=== PATIENT | female | born 1970 | race Caucasian/White ===

== ENCOUNTER 2023-03-03 09:34 | Outpatient (OUT) | payer BC, SELFPAY ==
[2023-03-03 09:58] LABS: Basophils Percent Auto 0.3 % (0.2-2.0); Eosinophils Absolute Auto 0.1 10^3/uL (0.0-0.7); Eosinophils Percent Auto 1.8 % (0.9-7.0); Hematocrit 42.1 % (36.0-48.0); Immature Granulocytes Abs Auto 0.02 10^3/uL (0.00-0.03); Immature Granulocytes Pct Auto 0.3 % (0.0-0.5); Lymphocytes Absolute Auto 1.3 10^3/uL (1.2-3.8); Lymphocytes Percent Auto 20.6 % (20.5-60.0); Mean Corpuscular HGB Conc 33.3 g/dL (29.9-35.2); Mean Corpuscular Hemoglobin 31.3 pg (26.7-34.0); Mean Platelet Volume 10.2 fL (9.5-13.5); Monocytes Absolute Auto 0.4 10^3/uL (0.3-0.8); Monocytes Percent Auto 5.8 % (1.7-12.0); Neutrophils Absolute Auto 4.5 10^3/uL (1.4-6.5); Neutrophils Percent Auto 71.2 % (43.0-75.0); Platelet Count 221 10^3/uL (150-450); Red Blood Count 4.48 10^6/uL (4.20-5.40); Red Cell Distribution Width 12.2 % (11.0-15.0); White Blood Count 6.3 10^3/uL (4.0-11.0)
[2023-03-03 10:23] LABS: Estimated Average Glucose 103 mg/dL; Glycohemoglobin A1C 5.2 % (4.5-6.2)
[2023-03-03 11:36] LABS: Alanine Aminotransferase 25 U/L (14-59); Albumin Globulin Ratio 0.8; Albumin Level 3.5 g/dL (3.4-5.0); Alkaline Phosphatase 73 U/L (46-116); Anion Gap 15.5; Aspartate Amino Transferase 12 U/L (15-37); Bilirubin Total 0.3 mg/dL (0.2-1.0); Carbon Dioxide 24.7 mmol/L (21.0-32.0); Chloride 104 mmol/L (98-107); Chol HDL Ratio 4.6; Cholesterol 175 mg/dL (<=200); Estimated GFR (African America >60 (>=60); Estimated GFR (Non-African Ame >60 (>=60); Free T3 2.63 pg/mL (2.18-3.98); Globulin 4.2 g/dL; Glucose 102 mg/dL (74-106); HDL Cholesterol 38 mg/dL (40-60); Potassium 4.2 mmol/L (3.5-5.1); Sodium 140 mmol/L (136-145); Thyroid Stimulating Hormone 1.482 uIU/mL (0.358-3.740); Total Protein 7.7 g/dL (6.4-8.2); Triglycerides 136 mg/dL (<=150); VLDL CHOLESTEROL 27.2 mg/dL
[2023-03-04 11:20] LABS: Insulin 37.2 uIU/mL (2.6-24.9)
== END 2023-03-03 09:35 | disposition home or self-care (01) ==
PROVIDERS: PCP Family Medicine; Visit Provider Family Medicine
DX: Z00.00 Encounter for general adult medical examination without abnormal findings (principal)
CPT/HCPCS: 36415; 80053; 80061; 83036; 83525; 83540; 84436; 84443; 84481; 85025

== ENCOUNTER 2023-03-17 08:23 | Outpatient (OUT) | payer BC, SELFPAY ==
--- NOTE | 2023-03-17 08:26 | MM_ITS ---
Patient: DINORAH VERNON Exam Date: 03/17/2023 : 1970 Gender:F Ordering : DR PHILIPPE AMOS . Admission #: [id number] Family : Order #: [id number] CLICK HERE TO VIEW EXAM RADIOLOGY REPORT PROCEDURE: MM TOMOSYNTHESIS SCREENING BI COMPARISON: [facility] MAMM SCREEN 3D VALENTE CAD, 03/04/2022. MG MAMM VALENTE SCRN W CAD DIG, 07/13/2015. INDICATIONS: Screening Calculator Name NCI Breast Cancer Risk Assessment Tool 5 Year Breast Cancer Risk 0.90% Lifetime Breast Cancer Risk 7.80% Personal Breast Cancer No Personal Ovarian Cancer No Treatments None Family Cancers Aunt-maternal with uterus cancer at age ~55. LOCATION: [facility] BREAST COMPOSITION: Scattered areas fibroglandular density. FINDINGS: DIAGNOSTIC CATEGORY 2--BENIGN FINDING: RIGHT BREAST: No significant suspicious finding. Scattered benign-appearing lymph nodes are present. No significant change has occurred. LEFT BREAST: No significant suspicious finding. No significant change has occurred. RECOMMENDATIONS: ROUTINE MAMMOGRAM AND CLINICAL EVALUATION IN 12 MONTHS. PLEASE NOTE: A NORMAL MAMMOGRAM DOES NOT EXCLUDE THE POSSIBILITY OF BREAST CANCER. A CLINICALLY SUSPICIOUS PALPABLE LUMP SHOULD BE BIOPSIED. Dictated by: Luiz Wu M.D. on 03/19/2023 at 08:41 Approved by: Luiz Wu M.D. on 03/19/2023 at 08:44
== END 2023-03-17 08:24 | disposition home or self-care (01) ==
LOC: MAMMO 08:23
PROVIDERS: PCP Family Medicine; Visit Provider Family Medicine
DX: Z12.31 Encounter for screening mammogram for malignant neoplasm of breast (principal); Z80.49 Family history of malignant neoplasm of other genital organs
CPT/HCPCS: 77063; 77067

== ENCOUNTER 2023-04-15 14:30 | Outpatient (OUT) | payer BC, SELFPAY | END 2023-04-15 14:31 | disposition home or self-care (01) | LOC: PST 04-16 09:16 | PROVIDERS: PCP Family Medicine; Visit Provider Surgery | DX: Z01.818 Encounter for other preprocedural examination (principal); Z12.11 Encounter for screening for malignant neoplasm of colon ==

== ENCOUNTER 2023-04-23 09:54 | Day surgery (SDC) | payer BC, SELFPAY ==
--- NOTE | 2023-04-23 | OP_ITS ---
OPERATION DATE: ??04/23/2023 PREOPERATIVE DIAGNOSIS:? Colorectal screening. POSTOPERATIVE DIAGNOSIS:? 7 mm sigmoid polyp, multiple small rectal polyps. PROCEDURE:? Colonoscopy to cecum with hot snare polypectomy x1 for sigmoid polyp and cold biopsy forceps polypectomy x3 for 3 mm rectal polyps. SURGEON:? Jayden Alexander M.D. ANESTHESIA:? Monitored anesthesia care. ESTIMATED BLOOD LOSS:? Less than 1 mL. INDICATIONS AND CONSENT:? Patient is a 52-year-old female presents for colorectal screening.? Indications, risks, benefits, alternatives of proceeding with colonoscopy were explained extensively to the patient, including the risks of bleeding, colon perforation or anesthetic complications.? All of her questions were answered.? Informed consent was obtained. PROCEDURE:? Patient brought to the operating room, placed in the left lateral decubitus position.? Monitored anesthesia care was provided.? Rectal exam was performed which showed no masses or blood.? The scope was inserted into the anal canal.? Under direct visualization was advanced.? With the aid of abdominal compression, it was advanced to the cecum where cecal markings were clearly identified.? There was noted to be a good prep.? Upon withdrawal of the scope, mucosal surfaces were carefully examined.? There were no mass lesions or inflammatory changes.? There were rare sigmoid diverticula.? Within the distal sigmoid colon, there was noted to be a 7 mm pedunculated polyp that was removed with hot snare with good hemostasis.? Within the rectum, there were multiple 3 mm rectal polyps, appeared to be hyperplastic.? Three were removed with cold biopsy forceps with good hemostasis.? The scope was retroflexed in the anal canal.? There was no significant hemorrhoidal disease.? There was a small hypertrophic anal papilla.? Scope was then withdrawn.? Patient tolerated procedure well, was sent to recovery room in good condition. surveillance colonoscopy likely in 3 years, but may change based on pathology. CC:? Johan Pro
[2023-04-23 10:00] VITALS: BP 146/83; PULSE 91; RESP 18; TEMP 36.2; O2SAT 97; BMI 44.4
[2023-04-23] MEDS: LACTATED RINGER'S SOLUTION 1,000 ML 50 ML IV (10:20)
[2023-04-23 11:27] VITALS: BP 116/73; PULSE 74; RESP 18; TEMP 36.7; O2SAT 97
[2023-04-23 11:42] VITALS: BP 153/88; PULSE 73; RESP 16; O2SAT 98
[2023-04-23 11:57] VITALS: BP 163/94; PULSE 72; RESP 16; O2SAT 98
== END 2023-04-23 12:07 | disposition home or self-care (01) ==
PROVIDERS: PCP Family Medicine; Visit Provider Surgery
PROC: (CPT 45380; principal; 2023-04-23 11:10)
DX: Z12.11 Encounter for screening for malignant neoplasm of colon (principal); D12.5 Benign neoplasm of sigmoid colon; K62.1 Rectal polyp; I10 Essential (primary) hypertension; E66.01 Morbid (severe) obesity due to excess calories; Z68.41 Body mass index [BMI] 40.0-44.9, adult; F17.210 Nicotine dependence, cigarettes, uncomplicated
CPT/HCPCS: 45380; 45385; 88305; J2704

== ENCOUNTER 2024-04-09 08:41 | Outpatient (OUT) | payer BC, SELFPAY ==
[2024-04-09 09:04] LABS: Basophils Percent Auto 0.4 % (0.2-2.0); Eosinophils Absolute Auto 0.1 10^3/uL (0.0-0.7); Eosinophils Percent Auto 2.3 % (0.9-7.0); Hematocrit 41.8 % (36.0-48.0); Hemoglobin 14.1 g/dL (12.0-16.0); Lymphocytes Absolute Auto 2.2 10^3/uL (1.2-3.8); Lymphocytes Percent Auto 42.3 % (20.5-60.0); Mean Corpuscular HGB Conc 33.7 g/dL (29.9-35.2); Mean Corpuscular Hemoglobin 32.3 pg (26.7-34.0); Mean Corpuscular Volume 95.7 fL (81.0-99.0); Mean Platelet Volume 10.6 fL (9.5-13.5); Monocytes Absolute Auto 0.5 10^3/uL (0.3-0.8); Monocytes Percent Auto 8.7 % (1.7-12.0); Neutrophils Absolute Auto 2.4 10^3/uL (1.4-6.5); Neutrophils Percent Auto 46.3 % (43.0-75.0); Platelet Count 220 10^3/uL (150-450); Red Blood Count 4.37 10^6/uL (4.20-5.40); Red Cell Distribution Width 12.1 % (11.0-15.0); White Blood Count 5.2 10^3/uL (4.0-11.0)
[2024-04-09 10:55] LABS: Alanine Aminotransferase 23 U/L (14-59); Albumin Globulin Ratio 0.9; Albumin Level 3.6 g/dL (3.4-5.0); Alkaline Phosphatase 86 U/L (46-116); Anion Gap 13.8; Aspartate Amino Transferase 15 U/L (15-37); BUN Creatinine Ratio 18.8; Bilirubin Total 0.4 mg/dL (0.2-1.0); Calcium 9.6 mg/dL (8.5-10.1); Carbon Dioxide 26.3 mmol/L (21.0-32.0); Chloride 103 mmol/L (98-107); Chol HDL Ratio 4.3; Cholesterol 176 mg/dL (<=200); Estimated GFR (African America >60 (>=60); Estimated GFR (Non-African Ame 57 (>=60); Free T3 2.47 pg/mL (2.18-3.98); Glucose 101 mg/dL (74-106); HDL Cholesterol 41 mg/dL (40-60); LDL Cholesterol Calculated 107.8 mg/dL; Potassium 4.1 mmol/L (3.5-5.1); Sodium 139 mmol/L (136-145); Thyroid Stimulating Hormone 2.257 uIU/mL (0.358-3.740); Total Protein 7.6 g/dL (6.4-8.2); Triglycerides 136 mg/dL (<=150); VLDL CHOLESTEROL 27.2 mg/dL
[2024-04-09 11:01] LABS: Estimated Average Glucose 100 mg/dL; Glycohemoglobin A1C 5.1 % (4.5-6.2)
[2024-04-10 10:09] LABS: Insulin 17.8 uIU/mL (2.6-24.9)
== END 2024-04-09 08:42 | disposition home or self-care (01) ==
LOC: LAB 08:42
PROVIDERS: PCP Family Medicine; Visit Provider Family Medicine
DX: Z00.00 Encounter for general adult medical examination without abnormal findings (principal)
CPT/HCPCS: 36415; 80053; 80061; 83036; 83525; 84436; 84443; 84481; 85025

== ENCOUNTER 2024-07-29 10:23 | Outpatient (OUT) | payer BC, SELFPAY ==
--- OUTSIDE RECORDS SUMMARY | 2024-07-29 10:32 | XMS_ITS | CCD ---
Author Organization [facility] Care Team Providers Care Workers Compensation Administrator Name Role Phone DR PHILIPPE PARDO Primary Care Unavailable EDVIN, DR PAEZ Consulting Unavailable DR PHILIPPE PARDO Attending Unavailable DR PHILIPPE PARDO Admitting Unavailable DR Luiz Wu Consulting Unavailable Philippe Pardo Primary Care Physician Jayden ALEXANDER Attending Unavailable Philippe Pardo Referring Unavailable NILL, Jayden Valle Attending Unavailable Philippe Pardo Referring Unavailable NILL, Jayden Valle Attending Unavailable NILL, Jayden Valle Attending Unavailable Allergies Allergy Classification Reported Allergen(s) Allergy Type Date of Onset Reaction(s) Facility (1 source) No Known Medication Allergies; Translations: [No Known Medication Allergies] Propensity to adverse reactions (disorder) [facility] Repository Medications Current Medications Medication Drug Class(es) Dates Sig (Normalized) Sig (Original) 0.75 ML semaglutide 3.2 MG/ML Auto-Injector [Wegovy] (2 sources) Start: 04-04-2023 inject 2.4 mg by subcutaneous injection every week Wegovy (2.4 mg dose) subcutaneous solution 2.4 mg, SubCutaneous, qWeek, Refills(s) 0 Start Date: 04/04/23 Status: Ordered carvedilol 12.5 mg oral tablet (2 sources) alpha-Adrenergic Nimco, beta-Adrenergic Nimco Start: 04-04-2023 take 1 tablet by mouth twice daily carvedilol 12.5 mg Tab 12.5 mg = 1 tab(s), Oral, BID, Refills(s) 0 Start Date: 04/04/23 Status: Ordered 24 hr desvenlafaxine succinate 50 mg extended release oral tablet (2 sources) Serotonin and Norepinephrine Reuptake Inhibitor Start: 04-04-2023 take 1 tablet by mouth once daily desvenlafaxine 50 mg Tab- 50 mg = 1 tab(s), Oral, Daily, Refills(s) 0 Start Date: 04/04/23 Status: Ordered Start: 04-04-2023 take 1 tablet by mitchell th once daily desvenlafaxine 50 mg Tab- 50 mg = 1 tab(s), Oral, Daily, Refills(s) 0 Start Date: 04/04/23 Status: Ordered irbesartan 150 mg oral tablet (2 sources) Angiotensin 2 Receptor Nimco Start: 04-04-2023 take 1 tablet by mouth once daily irbesartan 150 mg Tab 150 mg = 1 tab(s), Oral, Daily, Refills(s) 0 Start Date: 04/04/23 Status: Ordered Problems Problem Classification Problem Date Documented Da te Episodic/Chronic Anal and rectal conditions (1 source) Rectal polyp; Translations: [Rectal polyp] Onset: 05-02-2023 Episodic Essential hypertension (2 sources) Hypertensive disorder 04-04-2023 Chronic Mood disorders (2 sources) Depressive disorder 04-04-2023 Chronic Nutritional deficiencies (2 sources) Vitamin D deficiency 04-04-2023 Chronic Other and unspecified benign neoplasm (2 sources) Benign neoplasm of sigmoid colon; Translations: [Benign neoplasm of sigmoid colon] Onset: 05-02-2023 Episodic Other and unspecified benign neoplasm (1 source) Hyperplastic polyp of large intestine 05-02-2023 Episodic Other nutritional; endocrine; and metabolic disorders (3 sources) Body mass index 40+ - severely obese; Translations: [Body mass index (BMI) 40.0-44.9, adult] Onset: 04-09-2023 Chronic Other nutritional; endocrine; and metabolic disorders (2 sources) Morbid obesity 04-04-2023 Chronic Other screening for suspected conditions (not mental disorders or infectious disease) (2 sources) Encounter for screening mammogram for malignant neoplasm of breast; Translations: [Screening for malignant neoplasm of colon done] Onset: 03-05-2022 Episodic Residual codes; unclassified (1 source) Family history of malignant neoplasm of other organs or systems; Translations: [FAM HX MALIG NEOPLASM OTH ORGN/SYS] Onset: 03-05-2022 Episodic Unclassified (2 sources) Patient encounter status 04-09-2023 Results Test Name Value Interpretation Reference Range [facility] General Surgery Office/Clini c Noteon 05-02-2023 General Surgery Office/Clinic Note Chief Complaint post operative follow up HPI Staff 9 day post operative follow up post colonoscopy with sigmoid and rectal polypectomies. History of Present Illness s/p colonoscopy for colorectal screening; 7 mm tubular adenoma removed from sigmoid colon; multiple small hyperplastic rectal polyps; doing well, no abd pain or blood in stools. Review of Systems ROS - Provider Constitutional: no fever, no sweats, no weight loss. Eyes: no glasses, no blurred vision, no visual loss. ENMT: no dentures, no hoarseness, no swallowing difficulties, no hearing loss, no ear infection(s), no nose bleeds. Cardiovascular: normal blood pressure, no chest pain, regular heartbeat, no heart murmur. Respiratory: no shortness of breath, no cough, no asthma, no wheezing. Gastrointestinal: no nausea, no vomiting, no diarrhea, no constipation, no blood in stool, no change in bowel habits, no abdominal pain, no hepatitis. Genitourinary: no kidney stones, no urine infection, no dysuria. Musculoskeletal: no pain, no weakness. Skin: no changing moles, no rash, no skin lumps. Neurologic: no seizures, no epilepsy, no headache. Psychiatric: no emotional or psychiatric problem. Heme/Lymph: no bleeding problems, no anemia, no blood clots, no transfusions. Allergy/Immunologic: no swollen lymph nodes/glands, no IV drug abuse. Other: Additional ROS info: Except as noted in the above Review of Systems and in the History of Present Illness, all other systems have been reviewed and are negative or noncontributory. Assessment/Plan 1. Benign neoplasm of sigmoid colon (D12.5: Benign neoplasm of sigmoid colon) plan surveillance colonoscopy in 5 years, call sooner if problems/questions. 2. Hyperplastic rectal polyp (K62.1: Rectal polyp) see # 1 Follow-up No qualifying data available Problem List/Past Medical History Ongoing Benign neoplasm of sigmoid colon BMI 40.0-44.9, adult Depression HTN (hypertension) Hyperplastic rectal polyp Morbid obesity Screening for malignant neoplasm of colon Vitamin D deficiency Historical No qualifying data Procedure/Surgical History Colonoscopy (04/23/2023), Excision of hemangioma. Medications carvedilol 12.5 mg Tab, 12.5 mg= 1 tab(s), Oral, BID desvenlafaxine 50 mg Tab-, 50 mg= 1 tab(s), Oral, Daily irbesartan 150 mg Tab, 150 mg= 1 tab(s), Oral, Daily Wegovy (2.4 mg dose) subcutaneous solution, 2.4 mg, SubCutaneous, qWeek Allergies No Known Allergies No Known Medication Allergies Social History Alcohol - Denies Alcohol Use, 04/09/2023 Substance Abuse - Denies Substance Abuse, 04/09/2023 Tobacco 10 or more cigarettes (1/2 pack or more)/day in last 30 days Tobacco Use:. Never Smokeless Tobacco Use:. Cigarettes, 1 per day. Started age 15.0 Years. Yes, 04/09/2023 Family History Cardiac arrhythmia: Father and Brother. Hemochromatosis: Father. Hypertension: Mother. Immunizations Vaccine Date Status SARS-CoV-2 (COVID-19) [id number] 05/17/2022 Recorded SARS-CoV-2 (COVID-19) mRNA BNT-162b2 vax 07/06/2021 Recorded SARS-CoV-2 (COVID-19) mRNA BNT-162b2 vax 11/10/2020 Recorded SARS-CoV-2 (COVID-19) mRNA BNT-162b2 vax 10/20/2020 Recorded Normal [facility] Comment on above: Result Comment: Elec tronically Signed By: YENNI SALINAS, Jayden Luevano.emi\Date and Time Signed: 05/02/23 15:54 EDT Reminderson 05-02-2023 Reminders - From: Eun Rivera LPN To: N - Clinical; Sent: 05/02/2023 15:38:48 EDT Show up: 03/23/2028 07:00:00 EDT Subject: colonoscopy recall Due Date/Time: 04/23/2028 07:00:00 EDT Reminder/Recall Patient due for surveillance colonoscopy 04/23/2028 due to history of tubular adenoma. Normal [facility] Pathology Noteon 04-28-2023 Pathology Note [id number]# 1.00CD:127 Normal [facility] Outside Colonoscopyon 2022 Outside Colonoscopy [id number] #1.00CD:127 Normal [facility] Consent for Procedure/Surger yon 04-10-2023 Consent for Procedure/Surgery [id number] #1.00CD:127 Normal [facility] Formson 04-10-2023 Forms [id number] #1.00CD:127 Normal [facility] Ambulatory Visit Summaryon 0 04-09-2023 Ambulatory Visit Summary LEIGHA VERNON :1970 Visit Date:04/09/2023 Ambulatory Visit Instructions Your Diagnosis Screening for malignant neoplasm of colon BMI 40.0-44.9, adult Your Care Team Attending Physician - YENNI SALINAS, Jayden Valle Primary Care Physician - Edvin SALINAS, Philippe Referring Physician - Philippe Pardo MD This Is Your Medications List Contact prescribing physician if questions or concerns carvedilol (carvedilol 12.5 mg Tab) desvenlafaxine (desvenlafaxine 50 mg Tab-) irbesartan (irbesartan 150 mg Tab) semaglutide (Wegovy (2.4 mg dose) subcutaneous solution) Procedures Performed Excision of hemangioma. Discharge Vitals Heart Rate (Peripheral) 80 Respiratory Rate 16 Blood Pressure 138/90 Height 170 cm Height 67 in Weight 127.7 kg Weight 280.94 lb BMI 44.19 Medications What How Much When Instructions Unchanged carvedilol (carvedilol 12.5 mg Tab) 1 Tablets By Mouth 2 times a day Contact prescribing physician if questions or concerns Unchanged desvenlafaxine (desvenlafaxine 50 mg Tab-) 1 Tablets By Mouth Every day Contact prescribing physician if questions or concerns Unchanged irbesartan (irbesartan 150 mg Tab) 1 Tablets By Mouth Every day Contact prescribing physician if questions or concerns Unchanged semaglutide (Wegovy (2.4 mg dose) subcutaneous solution) 2.4 Milligram Subcutaneous Every week Contact prescribing physician if questions or concerns Allergies No Known Allergies No Known Medication Allergies Problems Ongoing - Any problem that you are currently receiving treatment for. BMI 40.0-44.9, adult Depression HTN (hypertension) Morbid obesity Screening for malignant neoplasm of colon Vitamin D deficiency Normal [facility] Provider Letteron 03-18-2023 Provider Letter March 18, 2023 LEIGHA VERNON [address] [place] [address] : 1970 Dear Leigha , We have been trying to reach you with no success. It is important that you return our call regarding your referral from Dr. Pardo_ upon receiving this letter. Also, at the time of your call, please provide us with your current information. Thank you for your prompt attention to this matter. Sincerely, Dr. Jayden Alexander General Surgery Normal [facility] Physician Referralon 023 Physician Referral [id number] #1.00CD:127 Normal [facility] Physician Referralon 023 Physician Referral [id number] #1.00CD:127 Normal [facility] INSULINon 03-05-2022 Insulin 30.6 uIU/mL Critically high 2.6-24.9 [facility] Comment on above: Performed By: #### I NSULIN #### [facility] [address] [place] [address] Dr. Alvino Oliva BNPon 03-04-2022 Natriuretic peptide B (Bld) [Mass/Vol] 25.0 pg/mL Normal <=900.0 [facility] Comment on above: Performed By: #### B SUSTAINABLE DESIGN COORDINATOR, TSH, CMP, LIPID, T7 #### [facility] [address] [place] [address] Dr. Alvino Oliva CBC AUTO DIFFon 03-04-2022 BASO # 0.0 103/ul Normal 0.0-0.1 [facility] Comment on above: Performed By: #### C BC #### [facility] [address] [place] [address] Dr. Alvino Oliva Basophils/100 WBC (Bld) 0.3 % Normal 0.2-2.0 [facility] Comment on above: Performed By: #### C BC #### [facility] [address] [place] [address] Dr. Alvino Oliva EO # 0.1 103/ul Normal 0.0-0.7 [facility] Comment on above: Performed By: #### C BC #### [facility] [address] [place] [address] Dr. Alvino Oliva Eosinophils/100 WBC (Bld) 1.9 % Normal 0.9-7.0 [facility] Comment on above: Performed By: #### C BC #### [facility] [address] [place] [address] Dr. Alvino Oliva Erythrocyte distribution width (RBC) [Ratio] 12.4 % Normal 11.0-15.0 [facility] Comment on above: Performed By: #### C BC #### [facility] [address] [place] [address] Dr. Alvino Oliva Hematocrit (Bld) [Volume fraction] 42.1 % Normal 36.0-48.0 [facility] Comment on above: Performed By: #### C BC #### [facility] [address] [place] [address] Dr. Alvino Oliva Hemoglobin (Bld) [Mass/Vol] 14.5 g/dL Normal 12.0-16.0 [facility] Comment on above: Performed By: #### C BC #### [facility] [address] [place] [address] Dr. Alvino Oliva IG # 0.02 10e3/ul Normal 0.00-0.03 [facility] Comment on above: Performed By: #### C BC #### [facility] [address] [place] [address] Dr. Alvino Oliva IG % 0.3 % Normal 0.0-0.5 [facility] Comment on above: Performed By: #### C BC #### [facility] [address] [place] [address] Dr. Alvino Oliva LYMPH # 1.9 103/ul Normal 1.2-3.8 [facility] Comment on above: Performed By: #### C BC #### [facility] [address] [place] [address] Dr. Alvino Oliva Lymphocytes/100 WBC (Bld) 31.7 % Normal 20.5-60.0 [facility] Comment on above: Performed By: #### C BC #### [facility] [address] [place] [address] Dr. Alvino Oliva MANUAL DIFF REQ NO Normal [facility] Comment on above: Performed By: #### C BC #### [facility] [address] [place] [address] Dr. Alvino Oliva MCH (RBC) [Entitic mass] 31.7 pg Normal 26.7-34.0 [facility] Comment on above: Performed By: #### C BC #### [facility] [address] [place] [address] Dr. Alvino Oliva MCHC (RBC) [Mass/Vol] 34.4 g/dL Normal 29.9-35.2 [facility] Comment on above: Performed By: #### C BC #### [facility] [address] [place] [address] Dr. Alvino Oliva MCV (RBC) [Entitic vol] 92.1 fL Normal 81.0-99.0 [facility] Comment on above: Performed By: #### C BC #### [facility] [address] [place] [address] Dr. Alvino Oliva MONO # 0.4 103/ul Normal 0.3-0.8 [facility] Comment on above: Performed By: #### C BC #### [facility] [address] [place] [address] Dr. Alvino Oliva Monocytes/100 WBC (Bld) 6.0 % Normal 1.7-12.0 [facility] Comment on above: Performed By: #### C BC #### [facility] [address] [place] [address] Dr. Alvino Oliva NEUT # 3.5 103/ul Normal 1.4-6.5 [facility] Comment on above: Performed By: #### C BC #### [facility] [address] [place] [address] Dr. Alvino Oliva Neutrophils/100 WBC (Bld) 59.8 % Normal 43.0-75.0 [facility] Comment on above: Performed By: #### C BC #### [facility] [address] [place] [address] Dr. Alvino Oliva Platelet mean volume (Bld) [Entitic vol] 10.2 fL Normal 9.5-13.5 [facility] Comment on above: Performed By: #### C BC #### [facility] [address] [place] [address] Dr. Alvino Oliva PLT 246 103/ul Normal 150-450 [facility] Comment on above: Performed By: #### C BC #### [facility] [address] [place] [address] Dr. Alvino Oliva RBC 4.57 106/ul Normal 4.20-5.40 [facility] Comment on above: Performed By: #### C BC #### [facility] [address] [place] [address] Dr. Alvino Oliva WBC 5.8 103/ul Normal 4.0-11.0 [facility] Comment on above: Performed By: #### C BC #### [facility] [address] [place] [address] Dr. Alvino Oliva FREE THYROXINE INDEX T7on FTI 2.44 Normal 1.30-4.50 [facility] Comment on above: Performed By: #### B SUSTAINABLE DESIGN COORDINATOR, TSH, CMP, LIPID, T7 #### [facility] [address] [place] [address] Dr. Alvino Oliva T3U 33.0 % Normal 30.0-39.0 [facility] Comment on above: Performed By: #### B SUSTAINABLE DESIGN COORDINATOR, TSH, CMP, LIPID, T7 #### [facility] [address] [place] [address] Dr. Alvino Oliva T4 [Mass/Vol] 7.40 ug/dL Normal 4.80-13.90 [facility] Comment on above: Performed By: #### B SUSTAINABLE DESIGN COORDINATOR, TSH, CMP, LIPID, T7 #### [facility] [address] [place] [address] Dr. Alvino Oliva GLYCOHEMOGLOBIN A1Con 2021 ADA RECOMMENDATION SEE BELOW Normal [facility] Comment on above: Result Comment: ADA RECOMMENDED LIMIT 4.0 - 6.0 ADA THERAPEUTIC TARGET < 7.0 ACTION SUGGESTED > 7.0 Performed By: #### A 1C #### [facility] [address] [place] [address] Dr. Alvino Oliva Glucose [Mass/Vol] 114 mg/dL Normal [facility] Comment on above: Performed By: #### A 1C #### [facility] [address] [place] [address] Dr. Alvino Oliva HbA1c (Bld) [Mass fraction] 5.6 % Normal 4.5-6.2 [facility] Comment on above: Performed By: #### A 1C #### [facility] [address] [place] [address] Dr. Alvino Oliva IRONon 03-04-2022 Iron [Mass/Vol] 117.0 ug/dL Normal 50.0-170.0 [facility] Comment on above: Performed By: #### I LANDON #### [facility] [address] [place] [address] Dr. Alvino Oliva LIPID PROFILEon 03-04-2022 CHOL-HDL RATIO NORM SEE BELOW Normal [facility] Comment on above: Result Comment: 3.3 - 4.4 LOW RISK 4.4 - 7.1 AVERAGE RISK 7.1 - 11.0 MODERATE RISK >11.0 HIGH RISK Performed By: #### B SUSTAINABLE DESIGN COORDINATOR, TSH, CMP, LIPID, T7 #### [facility] [address] [place] [address] Dr. Alvino Oliva Cholesterol [Mass/Vol] 187 mg/dL Normal <=200 [facility] Comment on above: Performed By: #### B SUSTAINABLE DESIGN COORDINATOR, TSH, CMP, LIPID, T7 #### [facility] [address] [place] [address] Dr. Alvino Oliva Cholesterol in HDL [Mass/Vol] 34 mg/dL Critically low 40-60 [facility] Comment on above: Performed By: #### B SUSTAINABLE DESIGN COORDINATOR, TSH, CMP, LIPID, T7 #### [facility] [address] [address] [address] Alvino Oliva Cholesterol in LDL [Mass/Vol] 122.6 mg/dL Normal [facility] Comment on above: Performed By: #### B SUSTAINABLE DESIGN COORDINATOR, TSH, CMP, LIPID, T7 #### [facility] [address] [address] [address] Alvino Oliva Cholesterol.total/Cho lesterol in HDL [Mass ratio] 5.5 {ratio} Normal [facility] Comment on above: Performed By: #### B SUSTAINABLE DESIGN COORDINATOR, TSH, CMP, LIPID, T7 #### [facility] [address] [address] [address] Alvino Oliva HDL NORMAL > or = 60 mg/dl - LOW CARDIOVASCULAR RISK <40 mg/dl - HIGH CARDIOVASCULAR RISK Normal [facility] Comment on above: Performed By: #### B SUSTAINABLE DESIGN COORDINATOR, TSH, CMP, LIPID, T7 #### [facility] [address] [address] [address] Alvino Oliva LDL CALC NORMAL SEE BELOW Normal [facility] Comment on above: Result Comment: <100 mg/dl OPTIMAL 100 - 129 mg/dl NEAR OR ABOVE OPTIMAL 130 - 159 mg/dl BORDERLINE HIGH 160 - 189 mg/dl HIGH >190 mg/dl VERY HIGH Performed By: #### B SUSTAINABLE DESIGN COORDINATOR, TSH, CMP, LIPID, T7 #### [facility] [address] [address] [address] Alvino Oliva Triglyceride [Mass/Vol] 152 mg/dL Critically high <=150 [facility] Comment on above: Performed By: #### B SUSTAINABLE DESIGN COORDINATOR, TSH, CMP, LIPID, T7 #### [facility] [address] [address] [address] Alvino Oliva VLDL CALC 30.4 mg/dL Normal [facility] Comment on above: Performed By: #### B SUSTAINABLE DESIGN COORDINATOR, TSH, CMP, LIPID, T7 #### [facility] [address] [address] [address] Alvino Oliva MG MAMM SCREEN 3D VALENTE CADon 03-04-2022 MG MAMM SCREEN 3D VALENTE CAD Patient: LEIGHA VERNONFlavio Exam Date: 03/04/2022 : 1970 Gender:F Ordering : DR PHILIPPE PARDO . Admission #: [id number] Family : Order #: [id number] CLICK HERE TO VIEW EXAM RADIOLOGY REPORT PROCEDURE: MAMMOGRAM SCREENING 3D BILATERAL CAD COMPARISON: MG MAMM VALENTE SCRN W CAD DIG, 07/13/2015. INDICATIONS: Screening mammography Calculator Name NCI Breast Cancer Risk Assessment Tool 5 Year Breast Cancer Risk 0.90% Lifetime Breast Cancer Risk 7.90% Personal Breast Cancer No Personal Ovarian Cancer No Treatments None Family Cancers Aunt-maternal with uterus cancer at age 55. LOCATION: [facility] BREAST COMPOSITION: Scattered areas fibroglandular density. FINDINGS: DIAGNOSTIC CATEGORY 2--BENIGN FINDING: RIGHT BREAST: No significant suspicious finding. Scattered benign-appearing nodule(s) are present. No significant change has occurred. LEFT BREAST: No significant suspicious finding. No significant change has occurred. RECOMMENDATIONS: ROUTINE MAMMOGRAM AND CLINICAL EVALUATION IN 12 MONTHS. PLEASE NOTE: A NORMAL MAMMOGRAM DOES NOT EXCLUDE THE POSSIBILITY OF BREAST CANCER. A CLINICALLY SUSPICIOUS PALPABLE LUMP SHOULD BE BIOPSIED. Dictated by: Luiz Wu M.D. on 03/04/2022 at 11:24 Approved by: Luiz Wu M.D. on 03/04/2022 at 11:28 Normal [facility] PROF 14(COMP METB)on 03-04- 022 Albumin [Mass/Vol] 3.6 g/dL Normal 3.4-5.0 [facility] Comment on above: Performed By: #### B SUSTAINABLE DESIGN COORDINATOR, TSH, CMP, LIPID, T7 #### [facility] [address] [address] [address] Alvino Oliva Albumin/Globulin [Mass ratio] 0.9 {ratio} Normal [facility] Comment on above: Performed By: #### B SUSTAINABLE DESIGN COORDINATOR, TSH, CMP, LIPID, T7 #### [facility] [address] [address] [address] Alvino Oliva ALP [Catalytic activity/Vol] 78 U/L Normal 46-116 [facility] Comment on above: Performed By: #### B SUSTAINABLE DESIGN COORDINATOR, TSH, CMP, LIPID, T7 #### [facility] [address] [address] [address] Alvino Oliva ALT [Catalytic activity/Vol] 23 U/L Normal 14-59 [facility] Comment on above: Performed By: #### B SUSTAINABLE DESIGN COORDINATOR, TSH, CMP, LIPID, T7 #### [facility] [address] [address] [address] Alvino Oliva Anion gap [Moles/Vol] 12.0 mmol/L Normal [facility] [facility] Comment on above: Performed By: #### B SUSTAINABLE DESIGN COORDINATOR, TSH, CMP, LIPID, T7 #### [facility] [address] [address] [address] Alvino Oliva AST [Catalytic activity/Vol] 11 U/L Critically low 15-37 [facility] Comment on above: Performed By: #### B SUSTAINABLE DESIGN COORDINATOR, TSH, CMP, LIPID, T7 #### [facility] [address] [place] [address] Dr. Alvino Oliva Bilirubin [Mass/Vol] 0.3 mg/dL Normal 0.2-1.0 [facility] Comment on above: Performed By: #### B SUSTAINABLE DESIGN COORDINATOR, TSH, CMP, LIPID, T7 #### [facility] [address] [place] [address] Dr. Alvino Oliva Calcium [Mass/Vol] 9.2 mg/dL Normal 8.5-10.1 [facility] Comment on above: Performed By: #### B SUSTAINABLE DESIGN COORDINATOR, TSH, CMP, LIPID, T7 #### [facility] [address] [place] [address] Dr. Alvino Oliva Chloride [Moles/Vol] 106 mmol/L Normal 98-107 [facility] Comment on above: Performed By: #### B SUSTAINABLE DESIGN COORDINATOR, TSH, CMP, LIPID, T7 #### [facility] [address] [place] [address] Dr. Alvino Oliva CO2 [Moles/Vol] 25.2 mmol/L Normal 21.0-32.0 [facility] Comment on above: Performed By: #### B SUSTAINABLE DESIGN COORDINATOR, TSH, CMP, LIPID, T7 #### [facility] [address] [place] [address] Dr. Alvino Oliva Creatinine [Mass/Vol] 1.05 mg/dL Critically high 0.55-1.02 [facility] Comment on above: Performed By: #### B SUSTAINABLE DESIGN COORDINATOR, TSH, CMP, LIPID, T7 #### [facility] [address] [place] [address] Dr. Alvino Oliva EGFR-AF NORWEGIAN >60 Normal >=60 [facility] Comment on above: Performed By: #### B SUSTAINABLE DESIGN COORDINATOR, TSH, CMP, LIPID, T7 #### [facility] [address] [place] [address] Dr. Alvino Oliva EGFR-NON AF NORWEGIAN 55 mL/min/1.73m2 Critically low >=60 [facility] Comment on above: Performed By: #### B SUSTAINABLE DESIGN COORDINATOR, TSH, CMP, LIPID, T7 #### [facility] [address] [place] [address] Dr. Alvino Oliva Globulin (S) [Mass/Vol] 4.0 g/dL Normal [facility] Comment on above: Performed By: #### B SUSTAINABLE DESIGN COORDINATOR, TSH, CMP, LIPID, T7 #### [facility] [address] [place] [address] Dr. Alvino Oliva Glucose [Mass/Vol] 125 mg/dL Critically high 74-106 T [facility] Comment on above: Performed By: #### B SUSTAINABLE DESIGN COORDINATOR, TSH, CMP, LIPID, T7 #### [facility] [address] [place] [address] Dr. Alvino Oliva Potassium [Moles/Vol] 4.2 mmol/L Normal 3.5-5.1 [facility] Comment on above: Performed By: #### B SUSTAINABLE DESIGN COORDINATOR, TSH, CMP, LIPID, T7 #### [facility] [address] [place] [address] Dr. Alvino Oliva Protein [Mass/Vol] 7.6 g/dL Normal 6.4-8.2 [facility] Comment on above: Performed By: #### B SUSTAINABLE DESIGN COORDINATOR, TSH, CMP, LIPID, T7 #### [facility] [address] [place] [address] Dr. Alvino Oliva Sodium [Moles/Vol] 139 mmol/L Normal 136-145 [facility] Comment on above: Performed By: #### B SUSTAINABLE DESIGN COORDINATOR, TSH, CMP, LIPID, T7 #### [facility] [address] [place], [place] [address] Dr. Alvino Oliva Urea nitrogen [Mass/Vol] 20.0 mg/dL Critically high 7.0-18.0 [facility] Comment on above: Performed By: #### B SUSTAINABLE DESIGN COORDINATOR, TSH, CMP, LIPID, T7 #### [facility] [address] [id number] [address] Alvino Oliva Urea nitrogen/Creatinine [Mass ratio] 19.0 mg/mg Normal [facility] Comment on above: Performed By: #### B SUSTAINABLE DESIGN COORDINATOR, TSH, CMP, LIPID, T7 #### [facility] [address] [address] [address] Alvino Oliva TSHon 03-04-2022 TSH 2.472 uIU/mL Normal 0.358-3.740 [facility] Comment on above: Performed By: #### B SUSTAINABLE DESIGN COORDINATOR, TSH, CMP, LIPID, T7 #### [facility] [address] [address] [address] Alvino Oliva Vital Signs Date Time Vital Sign Value Performing Clinician Faci litmalcolm 04-09-2023 13:59-0400 Blood Pressure Location Jayden ALEXANDER [facility] 04-09-2023 13:59-0400 Diastolic blood pressure 90 mm[Hg] Jayden ALEXANDER [facility] 04-09-2023 13:59-0400 Heart rate 80 /min Jayden ALEXANDER [facility] 04-09-2023 13:59-0400 Respiratory rate 16 /min Jayden ALEXANDER [facility] 04-09-2023 13:59-0400 Systolic blood pressure 138 mm[Hg] Jayden ALEXANDER [facility] Encounters Encounter Date Encounter Type Care Provider Facility Start: 05-02-2023 End: 05-03-2023 ambulatory Jayden ALEXANDER Facility:[facility] Start: 05-02-2023 End: 05-02-2023 Patient encounter procedure Jayden R NILL [facility] Start: 04-23-2023 End: 04-24-2023 ambulatory Jayden R NILL Facility:CD:[id number] Start: 04-09-2023 End: 04-10-2023 ambulatory Philippe Pardo [facility] Start: 04-09-2023 End: 04-09-2023 Patient encounter procedure Jayden R NILL General Surgery Nill/[facility]aid [facility] Start: 03-03-2023 ambulatory Jayden R NILL Facility :[facility] Start: 03-05-2022 Encounter for genera l adult medical examination without abnormal findings DR PHILIPPE PAROD [facility] Start: 03-04-2022 End: 03-05-[address] PHILIPPE PARDO Facility:[facility] Start: 03-04-2022 End: 03-05-2022 Encounter for general adult medical examination without abnormal findings DR PHILIPPE PARDO Facility:[facility] Procedures Date Procedure Procedure Detail Performing Clinician Start: 04-23-2023 Colonoscopy Jayden RAMIREZ Excision of hemangioma Ervin AUGUSTERobe Immunizations Immunization Date Immunization Notes Care Provider [facility] 05-17-2022 SARS-CoV-2 (COVID-19 ) [id number] Jayden NILL [facility] [place] 07-06-2021 SARS-CoV-2 (COVID-19 ) mRNA BNT-162b2 vax Jayden NILL [facility] [place] 11-10-2020 SARS-CoV-2 (COVID-19 ) mRNA BNT-162b2 vax Jayden NILL [facility] 10-20-2020 SARS-CoV-2 (COVID-19 ) mRNA BNT-162b2 vax Jayden NILL [facility] [place] Payers Date Payer Category Payer Unknown [id number] 1970 Unknown [id number] 2.16.84 [id number] 1970 Unknown [id number] 2.16.8 [id number] 1970 Unknown [id number] 2.16.8 [id number] 1970 Unknown [id number] 2.16.8 [id number] 1970 Unknown [id number] 2.16.8 [id number] 1959 Unknown [id number] Social History Date Type Detail Facility Start: 04-09-2023 Tobacco smoking status Heavy t obacco smoker (finding) [facility] Tobacco smoking status Never Gener al [facility] [place] Sex Assigned At Female [facility] Functional Status Date Assessment Result Facility 04-09-2023 Functional Status N/A [facility] Clinical Note 04-09-2023 Note Date & Type Note Facility 04-09-2023 Note Chief Complaint consultation for screening colonoscopy HPI Staff 52 year old female presents on consultation from Dr. Pardo for screening colonoscopy. Reports intermittent LLQ pain, nausea and loose stools that started with use of Wegovy. Denies rectal pain or bleeding. Denies vomiting or unexplained weight loss. Never had colonoscopy in the past. No known family history of colon cancer. History of Present Illness 52 yo female with h/o htn, depression, referred for colorectal screening; denies change in bms or blood in stools; no abdominal complaints; denies asa or NSAID use, no SBE prophylaxis; no abdominal operations, no previous colonoscopy; no fmhx of GI malignancy or IBD; smokes daily. Review of Systems PHQ Score Initial Depression Screen Score: 0 ROS - Provider Constitutional: no fever, no sweats, no weight loss. Eyes: no glasses, no blurred vision, no visual loss. ENMT: no dentures, no hoarseness, no swallowing difficulties, no hearing loss, no ear infection(s), no nose bleeds. Cardiovascular: normal blood pressure, no chest pain, regular heartbeat, no heart murmur. Respiratory: no shortness of breath, no cough, no asthma, no wheezing. Gastrointestinal: no nausea, no vomiting, no diarrhea, no constipation, no blood in stool, no change in bowel habits, no abdominal pain, no hepatitis. Genitourinary: no kidney stones, no urine infection, no dysuria. Musculoskeletal: no pain, no weakness. Skin: no changing moles, no rash, no skin lumps. Neurologic: no seizures, no epilepsy, no headache. Psychiatric: no emotional or psychiatric problem. Heme/Lymph: no bleeding problems, no anemia, no blood clots, no transfusions. Allergy/Immunologic: no swollen lymph nodes/glands, no IV drug abuse. Other: Additional ROS info: Except as noted in the above Review of Systems and in the History of Present Illness, all other systems have been reviewed and are negative or noncontributory. Physical Exam Vitals & Measurements HR: 80(Peripheral) RR: 16 BP: 138/90 HT: 67 in HT: 170 cm WT: 127.7 kg WT: 280.94 lb BMI: 44.19 HEENT: normal conjunctiva, sclera clear, no scleral icterus, EOM intact, PERRLA, oral mucosa moist without lesions. Neck: trachea midline, no mass, symmetric, no thyromegaly or nodules, no adenopathy Respiratory: lungs CTA, respirations non labored. Cardiovascular: regular rate and rhythm, no murmur, no pedal edema or varicosities. Gastrointestinal: obese,soft, non distended, no tenderness, no masses, no palpable hernias, diastasis recti no, no hepatosplenomegaly; normal bs Lymphatic: no cervical adenopathy, no supraclavicular adenopathy. Musculoskeletal: normal gait, digits and nails without infection, nodes, cyanosis, clubbing. Skin: no rashes, no lesions, no ulcers, no subcutaneous nodules, induration. Psychiatric/Neuro: oriented to time, place, person, judgement normal, affect appropriate for age, insight intact, no focal deficits. Tests: , review of old records completed, Discussed surgical options, risks, and possible complications with patient. Assessment/Plan 1. Screening for malignant neoplasm of colon (Z12.11: Encounter for screening for malignant neoplasm of colon) plan colonoscopy under anesthesia, informed consent obtained. 2. BMI 40.0-44.9, adult (Z68.41: Body mass index [BMI] 40.0-44.9, adult) recommend diet and exercise Follow-up No qualifying data available Problem List/Past Medical History Ongoing BMI 40.0-44.9, adult Depression HTN (hypertension) Morbid obesity Screening for malignant neoplasm of colon Vitamin D deficiency Historical No qualifying data Procedure/Surgical History Excision of hemangioma. Medications carvedilol 12.5 mg Tab, 12.5 mg= 1 tab(s), Oral, BID desvenlafaxine 50 mg Tab-, 50 mg= 1 tab(s), Oral, Daily irbesartan 150 mg Tab, 150 mg= 1 tab(s), Oral, Daily Wegovy (2.4 mg dose) subcutaneous solution, 2.4 mg, SubCutaneous, qWeek Allergies No Known Allergies No Known Medication Allergies Social History Alcohol - Denies Alcohol Use, 04/09/2023 Substance Abuse - Denies Substance Abuse, 04/09/2023 Tobacco 10 or more cigarettes (1/2 pack or more)/day in last 30 days Tobacco Use:. Never Smokeless Tobacco Use:. Cigarettes, 1 per day. Started age 15.0 Years. Yes, 04/09/2023 Family History Cardiac arrhythmia: Father and Brother. Hemochromatosis: Father. Hypertension: Mother. Immunizations Vaccine Date Status SARS-CoV-2 (COVID-19) [id number] 05/17/2022 Recorded SARS-CoV-2 (COVID-19) mRNA BNT-162b2 vax 07/06/2021 Recorded SARS-CoV-2 (COVID-19) mRNA BNT-162b2 vax 11/10/2020 Recorded SARS-CoV-2 (COVID-19) mRNA BNT-162b2 vax 10/20/2020 Recorded [facility] Comment on above: Result Comment: Elec tronically Signed By: YENNI SALINAS, Jayden Valle\boaz\Date and Time Signed: 04/09/23 14:22 EDT Evaluation + Plan note Note Date & Type Note Facility Evaluation + Plan note No data available for this section [facility] Discharge instructions Note Date & Type Note Facility Hospital Discharge instructions No data available for this section [facility] Progress note Note Date & Type Note Facility Progress note No data available for this section [facility] Summary Purpose Family History No Family History Records FoundNo Family History Records Found Advance Directives No Advanced Directives Records FoundNo Advanced Directives Records Found Additional Source Comments INFORMATION SOURCE (unrecogn ized section and content) DATE CREATED AUTHOR 04/05/2022 [facility] DATE CREATED AUTHOR AUTHOR'S ORGANIZ ATION 05/14/2023 [facility] Patient Care team informatio n (unrecognized section and content) Personnel Name: Philippe Padro MD Address: Address: [address] [place] [address] Personnel Name: Philippe Pardo MD Address: Address: [address] [place] [address] FOR RECORDS PERTAINING TO PATIENTS WHO ARE OR HAVE BEEN ENROLLED IN A CHEMICAL DEPENDENCY/SUBSTANCEABUSE PROGRAM, SOME INFORMATION MAY BE OMITTED. This clinical summary was aggregated from multiple sources. Caution should be exercised in using it in the provision of clinical care. This summary normalizes information from multiple sources, and as a consequence, information in this document may materially change the coding, format and clinical context of patient data. In addition, data may be omitted in some cases. CLINICAL DECISIONS SHOULD BE BASED ON THE PRIMARY CLINICAL RECORDS. [employer] [facility]. provides no warranty or guarantee of the accuracy or completeness of information in this document.
[2024-07-29 11:35] LABS: Free T4 0.84 ng/dL (0.76-1.46)
[2024-07-30 08:10] LABS: Estradiol <5.0 pg/mL (.); FSH 67.3 mIU/mL (.); Luteinizing Hormone(LH) 34.8 mIU/mL (.); Progesterone 0.1 ng/mL (.)
[2024-08-01 06:39] LABS: Free Testosterone(Direct) 1.1 pg/mL (0.0-4.2); Testosterone 39 ng/dL (4-50)
== END 2024-07-29 10:24 | disposition home or self-care (01) ==
LOC: LAB 10:24
PROVIDERS: PCP Family Medicine
DX: Z78.0 Asymptomatic menopausal state (principal)
CPT/HCPCS: 36415; 82627; 82670; 83001; 83002; 84144; 84402; 84403; 84439; 84443

== ENCOUNTER 2025-04-14 07:59 | Outpatient (OUT) | payer BC, SELFPAY ==
--- OUTSIDE RECORDS SUMMARY | 2025-04-14 08:03 | XMS_ITS | CCD ---
Author Organization [facility] Care Team Providers Care Television Cable Installer Name Role Phone DR PHILIPPE PARDO Primary Care Unavailable EDVIN, DR PAEZ Consulting Unavailable EDVIN, DR PAEZ Attending Unavailable EDVIN, DR PAEZ Admitting Unavailable Zieber, DR Dee Consulting Unavailable Philippe Pardo Primary Care Physician [phone] Jayden ALEXANDER Attending Unavailable Philippe Pardo Referring Unavailable NILL, Jayden Valle Attending Unavailable Philippe Pardo Referring Unavailable NILL, Jayden Valle Attending Unavailable NILL, Jayden Valle Attending Unavailable KROTZER, ROBYN M Referring Unavailable Jessica Willett APRN Attending Provider Philippe Pardo MD Primary Care Provider [phone] Attending Provider Unavailable Allergies Allergy Classification Reported Allergen(s) Allergy Type Date of Onset Reaction(s) Facility (1 source) No Known Medication Allergies; Translations: [No Known Medication Allergies] Propensity to adverse reactions (disorder) [facility] Repository Medications Current Medications Medication Drug Class(es) Dates Sig (Normalized) Sig (Original) 0.75 ML semaglutide 3.2 MG/ML Auto-Injector [Wegovy] (2 sources) Start: 04-04-2023 inject 2.4 mg by subcutaneous injection every week Wegovy (2.4 mg dose) subcutaneous solution 2.4 mg, SubCutaneous, qWeek, Refills(s) 0 Start Date: 04/04/23 Status: Ordered apigenin (4 sources) Start: 02-16-2025 take 50 mg by mouth once daily apigenin Active 50 MG PO Daily February 16, 2025 12:00am Complies with drug therapy Start: 02-16-2025 take 50 mg by mouth once daily Bacillus coagulans (4 sources) Start: 02-16-2025 Start: 02-16-2025 Bacillus coagu lans (Probiotic (B. coagulans)) Active PO Daily February 16, 2025 12:00am Complies with drug therapy carvedilol 12.5 mg oral tablet (6 sources) alpha-Adrenergic Nimco, beta-Adrenergic Nimco Start: 02-16-2025 take 1 tablet by mouth twice daily Carvedilol 12.5 mg tablet Active 12.5 MG PO Twice daily February 16, 2025 12:00am Complies with drug therapy Start: 04-04-2023 take 1 tablet by mitchell th twice daily carvedilol 12.5 mg Tab 12.5 mg = 1 tab(s), Oral, BID, Refills(s) 0 Start Date: 04/04/23 Status: Ordered cholecalciferol 0.125 mg oral capsule (4 sources) Vitamin D Start: 02-16-2025 take 1 capsule by mouth once daily Cholecalciferol (Vitamin D3) 125 mcg (5,000 unit) capsule Active 125 MCG PO Daily February 16, 2025 12:00am Complies with drug therapy 24 hr desvenlafaxine succinate 50 mg extended release oral tablet (6 sources) Serotonin and Norepinephrine Reuptake Inhibitor Start: 02-16-2025 take 1 tablet by mouth once daily Desvenlafaxine Succinate 50 mg tablet extended release 24 hr Active 50 MG PO Daily February 16, 2025 12:00am Complies with drug therapy Start: 04-04-2023 take 1 tablet by mitchell th once daily desvenlafaxine 50 mg Tab- 50 mg = 1 tab(s), Oral, Daily, Refills(s) 0 Start Date: 04/04/23 Status: Ordered Start: 04-04-2023 take 1 tablet by mitchell th once daily desvenlafaxine 50 mg Tab- 50 mg = 1 tab(s), Oral, Daily, Refills(s) 0 Start Date: 04/04/23 Status: Ordered irbesartan 150 mg oral tablet (6 sources) Angiotensin 2 Receptor Nimco Start: 02-16-2025 take 1 tablet by mouth once daily Irbesartan 150 mg tablet Active 150 MG PO Daily February 16, 2025 12:00am Complies with drug therapy Start: 04-04-2023 take 1 tablet by mitchell th once daily irbesartan 150 mg Tab 150 mg = 1 tab(s), Oral, Daily, Refills(s) 0 Start Date: 04/04/23 Status: Ordered magnesium bisgylcinate (4 sources) Start: 02-16-2025 take 2 capsules by mouth once daily magnesium bisgylcinate Active 2 CAP PO Daily February 16, 2025 12:00am Complies with drug therapy Start: 02-16-2025 take 2 capsules by mouth once daily Nhyymxcr-Ofd-Uucj-Fa-Vit K-L ut (Centrum Minis Women 50 Plus) 4 mg iron-200 mcg-25 mcg tablet (4 sources) Start: 02-16-2025 take 1 tablet by mitchell th once Start: 02-16-2025 take 1 tablet by mitchell th once Uwwbtqbt-Knq-Raqh-Fa-Vit K-Lut (Centrum Minis Women 50 Plus) 4 mg iron-200 mcg-25 mcg tablet Active TAB PO February 16, 2025 12:00am Complies with drug therapy 24 hr nicotine 0.583 mg/hr transdermal system (5 sources) Cholinergic Nicotinic Agonist Start: 04-04-2025 apply 1 dose transdermal route every twenty-four hours Nicotine 14 mg/24 hr patch 24 hour Active 1 PATCH TRANSDERML Daily April 04, 2025 12:00am Complies with drug therapy Start: 02-16-2025 End: 04-04-2025 apply 1 dose transdermal route every twenty-four hours Nicotine 21 mg/24 hr patch 24 hour Discontinued 1 PATCH TRANSDERML Daily February 16, 2025 12:00am April 04, 2025 3:10pm Semaglutide (Weight Loss) (4 sources) Start: 02-16-2025 Start: 02-16-2025 Semaglutide (W eight Loss) (Wegovy) 2.4 mg/0.75 mL pen injector Active 2.4 MG SUBCUT every week February 16, 2025 12:00am Complies with drug therapy Problems Problem Classification Problem Date Documented Date Episodic/Chronic Anal and rectal conditions (1 source) Rectal polyp; Translations: [Rectal polyp] Onset: 05-02-2023 Episodic Anxiety disorders (4 sources) Anxiety; Translations: [Anxiety disorder, unspecified] 02-07-2025 Chronic Coma; stupor; and brain damage (4 sources) Daytime somnolence; Translations: [Somnolence] 02-16-2025 Episodic Diabetes mellitus without complication (7 sources) Hyperglycemia; Translations: [Impaired fasting glucose] 02-16-2025 Episodic Esophageal disorders (7 sources) Gastroesophageal reflux disease; Translations: [Gastro-esophageal reflux disease without esophagitis] 02-16-2025 Chronic Essential hypertension (10 sources) Hypertensive disorder; Translations: [Essential (primary) hypertension] 04-04-2023 Chronic Mood disorders (6 sources) Depressive disorder; Translations: [Depression] 04-04-2023 Chronic Mood disorders (2 sources) Mood disorders Nutritional deficiencies (2 sources) Vitamin D deficiency 04-04-2023 Chronic Other and unspecified benign neoplasm (2 sources) Benign neoplasm of sigmoid colon; Translations: [Benign neoplasm of sigmoid colon] Onset: 05-02-2023 Episodic Other and unspecified benign neoplasm (1 source) Hyperplastic polyp of large intestine 05-02-2023 Episodic Other inflammatory condition of skin (8 sources) Psoriasis; Translations: [Psoriasis, unspecified] 02-16-2025 Chronic Other nutritional; endocrine; and metabolic disorders (11 sources) Body mass index 40+ - severely [...] MALIG NEOPLASM OTH ORGN/SYS] Onset: 03-05-2022 Episodic Residual codes; unclassified (1 source) Asymptomatic menopausal state; Translations: [Asymptomatic menopausal state] Onset: 07-28-2024 Episodic Screening and history of mental health and substance abuse codes (1 source) Encounter for screening for depression; Translations: [Encounter for screening for depression] Onset: 07-28-2024 Episodic Unclassified (2 sources) Patient encounter status 04-09-2023 Unclassified (1 source) Gynecologic Exam Onset: 07-28-2024 Results Test Name Value Interpretation Reference Range Facility Cytologyon 12-18-2024 Cytology Normal [facility] Comment on above: Result Comment: [facility] [address] [place] [address] Gynecologic Cytology Consultation Patient Name:RACHEL VERNONB:1970 (Age: 54)Gender:FTaken:4Reported:08/16/2024Physician(s):Robyn Toledo, [facility] ([phone])Copy To: Rec. #:[id number]: #[id number] Final Cytologic Interpretation ThinPrep Pap Test (Cervical): Satisfactory for evaluation. NEGATIVE FOR INTRAEPITHELIAL LESION OR MALIGNANCY. [facility]/08/16/20[address] [facility], [address] [place] [address], License number: [id number]. Electronically Signed Out By MURRAY Santana(ASCP) Date of Last Menstrual Period: (None Given) Other Clinical Conditions: Menopausal Clinical History: postmenopausal Z01.419 Galvanometer Assembler exam wo/abn findings Source of Specimen ThinPrep Pap Test (Cervical) Thin Prep Pap (CORPORATE FITNESS PROGRAM COORDINATOR) Fee Code(s): G0145 The Pap test is a screening test with an inherent, but low, probability of error. The Pap test is primarily effective for the diagnosis and prevention of squamous cell carcinoma. Regular screening is critical for prevention. ThinPrep liquid-based slides, which meet the Health Insurance Agent criteria for automated screening, have been screened by the ThinPrep Imaging System (as of 04/27/07) along with an additional manual rescreening by a geothermal operating engineer and, if indicated, by a pathologist. HIGH RISK HPV W/GENOon 07-28 HPV 31+33+35+39+45+51+52 +56+58+59+66+68 DNA RIKY+probe Ql (Cvx) HPV SPECIMEN TYPE ThinPrep HPV 16 Negative (qualifier value) HPV 18 Negative (qualifier value) OTHER HIGH RISK HPV Negative (qualifier value) HPV types 31,33,35,39,45,52,56, 58,59,66 and 68 DNA were undetectable. Normal [facility] Comment on above: Performed By: #### 7 1431-1 #### [facility] ([id number]) [address] [facility], [place] [address] [facility] ([id number]) [address] [facility], [address] [place] [address] General Surgery Office/Clini c Noteon 05-02-2023 General [...] Mother. Immunizations Vaccine Date Status SARS-CoV-2 (COVID-19) mRNAMUL.[id number] 05/17/2022 Recorded SARS-CoV-2 (COVID-19) mRNA BNT-162b2 vax 07/06/2021 Recorded SARS-CoV-2 (COVID-19) mRNA BNT-162b2 vax 11/10/2020 Recorded SARS-CoV-2 (COVID-19) mRNA BNT-162b2 vax 10/20/2020 Recorded Normal [facility] Comment on above: Result Comment: Elec tronically Signed By: YENNI SALINAS, Jayden Sheffield\Date and Time Signed: 05/02/23 15:54 EDT Reminderson 05-02-2023 Reminders - From: Eun Rivera LPN To: N - Clinical; Sent: 05/02/2023 15:38:48 EDT Show up: 03/23/2028 07:00:00 EDT Subject: colonoscopy recall Due Date/Time: 04/23/2028 07:00:00 EDT Reminder/Recall Patient due for surveillance colonoscopy 04/23/2028 due to history of tubular adenoma. Normal [facility] Pathology Noteon 04-28-2023 Pathology Note [id number]#1. 00CD:127 Normal [facility] Outside Colonoscopyon 2022 Outside Colonoscopy [id number]#1 .00CD:127 Normal [facility] Consent for Procedure/Surger yon 04-10-2023 Consent for Procedure/Surgery [id number]#1 .00CD:127 [facility] Formson 04-10-2023 Forms [id number]#1 .00CD:127 [facility] Ambulatory Visit Summaryon 0 04-09-2023 [...] neoplasm of colon Vitamin D deficiency Normal [facility] Provider Letteron 03-18-2023 Provider Letter March 18, 2023 LEIGHA VERNON [address] [place] [address] : 1970 Dear Leigha , We have been trying to reach you with no success. It is important that you return our call regarding your referral from Dr. Rock upon receiving this letter. Also, at the time of your call, please provide us with your current information. Thank you for your prompt attention to this matter. Sincerely, Dr. Jayden Alexander General Surgery Normal [facility] Physician Referralon 023 Physician Referral [id number]#1 .00CD:127 Normal [facility] Physician Referralon 023 Physician Referral [id number]#1 .00CD:127 Normal [facility] INSULINon 03-05-2022 Insulin 30.6 uIU/mL Critically high 2.6-24.9 [facility] Comment on above: Performed By: #### I NSULIN #### [facility] [address] [place] [address] Dr. Alvino Oliva BNPon 03-04-2022 Natriuretic peptide B (Bld) [Mass/Vol] 25.0 pg/mL Normal <=900.0 [facility] Comment on above: Performed By: #### B EMBALMER ASSISTANT, TSH, CMP, LIPID, T7 #### [facility] [address] [address] [address] Alvino Oliva CBC AUTO DIFFon 03-04-2022 BASO # 0.0 103/ul Normal 0.0-0.1 [facility] Comment on above: Performed By: #### C BC #### [facility] [address] [place] [address] Dr. Alvino Oliva Basophils/100 WBC (Bld) 0.3 % Normal 0.2-2.0 [facility] Comment on above: Performed By: #### C BC #### [facility] [address] [place] [address] Dr. Alvino Oliva EO # 0.1 103/ul Normal 0.0-0.7 [facility] Comment on above: Performed By: #### C BC #### [facility] [address] [place] [address] Dr. Alvino Oliva Eosinophils/100 WBC (Bld) 1.9 % Normal 0.9-7.0 [facility] Comment on above: Performed By: #### C BC #### [facility] [address] [place] [address] Dr. Alvino Oliva Erythrocyte distribution width (RBC) [Ratio] 12.4 % Normal 11.0-15.0 [facility] Comment on above: Performed By: #### C BC #### [facility] [address] [place] [address] Dr. Alvino Oliva Hematocrit (Bld) [Volume fraction] 42.1 % Normal 36.0-48.0 [facility] Comment on above: Performed By: #### C BC #### [facility] [address] [place] [address] Dr. Alvino Oliva Hemoglobin (Bld) [Mass/Vol] 14.5 g/dL Normal 12.0-16.0 [facility] Comment on above: Performed By: #### C BC #### [facility] [address] [place] [address] Dr. Alvino Oliva IG # 0.02 10e3/ul Normal 0.00-0.03 [facility] Comment on above: Performed By: #### C BC #### [facility] [address] [place] [address] Dr. lAvino Oliva IG % 0.3 % Normal 0.0-0.5 [facility] Comment on above: Performed By: #### C BC #### [facility] [address] [place] [address] Dr. Alvino Oliva LYMPH # 1.9 103/ul Normal 1.2-3.8 [facility] Comment on above: Performed By: #### C BC #### [facility] [address] [place] [address] Dr. Alvino Oliva Lymphocytes/100 WBC (Bld) 31.7 % Normal 20.5-60.0 [facility] Comment on above: Performed By: #### C BC #### [facility] [address] [place] [address] Dr. Alvino Oliva MANUAL DIFF REQ NO Normal [facility] Comment on above: Performed By: #### C BC #### [facility] [address] [place] [address] Dr. Alvino Oliva MCH (RBC) [Entitic mass] 31.7 pg Normal 26.7-34.0 [facility] Comment on above: Performed By: #### C BC #### [facility] [address] [place] [address] Dr. Alvino Oliva MCHC (RBC) [Mass/Vol] 34.4 g/dL Normal 29.9-35.2 [facility] Comment on above: Performed By: #### C BC #### [facility] [address] [place] [address] Dr. Alvino Oliva MCV (RBC) [Entitic vol] 92.1 fL Normal 81.0-99.0 [facility] Comment on above: Performed By: #### C BC #### [facility] [address] [place] [address] Dr. Alvino Oliva MONO # 0.4 103/ul Normal 0.3-0.8 [facility] Comment on above: Performed By: #### C BC #### [facility] [address] [place] [address] Dr. Alvino Oliva Monocytes/100 WBC (Bld) 6.0 % Normal 1.7-12.0 [facility] Comment on above: Performed By: #### C BC #### [facility] [address] [place] [address] Dr. Alvino Oliva NEUT # 3.5 103/ul Normal 1.4-6.5 [facility] Comment on above: Performed By: #### C BC #### [facility] [address] [place] [address] Dr. Alvino Oliva Neutrophils/100 WBC (Bld) 59.8 % Normal 43.0-75.0 [facility] Comment on above: Performed By: #### C BC #### [facility] [address] [place] [address] Dr. Alvino Oliva Platelet mean volume (Bld) [Entitic vol] 10.2 fL Normal 9.5-13.5 [facility] Comment on above: Performed By: #### C BC #### [facility] [address] [place] [address] Dr. Alvino Oliva PLT 246 103/ul Normal 150-450 [facility] Comment on above: Performed By: #### C BC #### [facility] [address] [place] [address] Dr. Alvino Oliva RBC 4.57 106/ul Normal 4.20-5.40 [facility] Comment on above: Performed By: #### C BC #### [facility] [address] [place] [address] Dr. Alvino Oliva WBC 5.8 103/ul Normal 4.0-11.0 [facility] Comment on above: Performed By: #### C BC #### [facility] [address] [place] [address] Dr. Alvino Oliva FREE THYROXINE INDEX T7on FTI 2.44 Normal 1.30-4.50 [facility] Comment on above: Performed By: #### B EMBALMER ASSISTANT, TSH, CMP, LIPID, T7 #### [facility] [address] [place] [address] Dr. Alvino Oliva T3U 33.0 % Normal 30.0-39.0 [facility] Comment on above: Performed By: #### B EMBALMER ASSISTANT, TSH, CMP, LIPID, T7 #### [facility] [address] [address] [address] Alvino Oliva T4 [Mass/Vol] 7.40 ug/dL Normal 4.80-13.90 [facility] Comment on above: Performed By: #### B EMBALMER ASSISTANT, TSH, CMP, LIPID, T7 #### [facility] [address] [place] [address] Dr. Alvino Oliva GLYCOHEMOGLOBIN A1Con 2021 ADA RECOMMENDATION SEE BELOW Normal [facility] Comment on above: Result Comment: ADA RECOMMENDED LIMIT 4.0 - 6.0 ADA THERAPEUTIC TARGET < 7.0 ACTION SUGGESTED > 7.0 Performed By: #### A 1C #### [facility] [address] [place] [address] Dr. Alvino Oliva Glucose [Mass/Vol] 114 mg/dL Normal [facility] Comment on above: Performed By: #### A 1C #### [facility] [address] [place] [address] Dr. Alvino Oliva HbA1c (Bld) [Mass fraction] 5.6 % Normal 4.5-6.2 [facility] Comment on above: Performed By: #### A 1C #### [facility] [address] [place] [address] Dr. Alvino Oliva IRONon 03-04-2022 Iron [Mass/Vol] 117.0 ug/dL Normal 50.0-170.0 [facility] Comment on above: Performed By: #### I LANDON #### [facility] [address] [place] [address] Dr. Alvino Oliva LIPID PROFILEon 03-04-2022 CHOL-HDL RATIO NORM SEE BELOW Normal [facility] Comment on above: Result Comment: 3.3 - 4.4 LOW RISK 4.4 - 7.1 AVERAGE RISK 7.1 - 11.0 MODERATE RISK >11.0 HIGH RISK Performed By: #### B EMBALMER ASSISTANT, TSH, CMP, LIPID, T7 #### [facility] [address] [place] [address] Dr. Alvino Oliva Cholesterol [Mass/Vol] 187 mg/dL Normal <=200 [facility] Comment on above: Performed By: #### B EMBALMER ASSISTANT, TSH, CMP, LIPID, T7 #### [facility] [address] [address] [address] Alvino Oliva Cholesterol in HDL [Mass/Vol] 34 mg/dL Critically low 40-60 [facility] Comment on above: Performed By: #### B EMBALMER ASSISTANT, TSH, CMP, LIPID, T7 #### [facility] [address] [address] [address] Alvino Oliva Cholesterol in LDL [Mass/Vol] 122.6 mg/dL Normal [facility] Comment on above: Performed By: #### B EMBALMER ASSISTANT, TSH, CMP, LIPID, T7 #### [facility] [address] [address] [address] Alvino Oliva Cholesterol.total/Ch olesterol in HDL [Mass ratio] 5.5 {ratio} Normal [facility] Comment on above: Performed By: #### B EMBALMER ASSISTANT, TSH, CMP, LIPID, T7 #### [facility] [address] [address] [address] Alvino Oliva HDL NORMAL > or = 60 mg/dl - LO W CARDIOVASCULAR RISK <40 mg/dl - HIGH CARDIOVASCULAR RISK Normal [facility] Comment on above: Performed By: #### B EMBALMER ASSISTANT, TSH, CMP, LIPID, T7 #### [facility] [address] [address] [address] Alvino Oliva LDL CALC NORMAL SEE BELOW Normal [facility] Comment on above: Result Comment: <100 mg/dl OPTIMAL 100 - 129 mg/dl NEAR OR ABOVE OPTIMAL 130 - 159 mg/dl BORDERLINE HIGH 160 - 189 mg/dl HIGH >190 mg/dl VERY HIGH Performed By: #### B EMBALMER ASSISTANT, TSH, CMP, LIPID, T7 #### [facility] [address] [address] [address] Alvino Oliva Triglyceride [Mass/Vol] 152 mg/dL Critically high <=150 [facility] Comment on above: Performed By: #### B EMBALMER ASSISTANT, TSH, CMP, LIPID, T7 #### [facility] [address] [place], [place] [address] Dr. Alvino Oliva VLDL CALC 30.4 mg/dL Normal [facility] Comment on above: Performed By: #### B EMBALMER ASSISTANT, TSH, CMP, LIPID, T7 #### [facility] [address] [place], [place] [address] Dr. Alvino Oliva MG MAMM SCREEN 3D VALENTE CADon 03-04-2022 MG MAMM SCREEN 3D VALENTE CAD Patient: LEIGHA VERNON Exam Date: 03/04/2022 : 1970 Gender:F Ordering : DR PHILIPPE PARDO . Admission #: [id number] Family : Order #: [id number] CLICK HERE TO VIEW EXAM RADIOLOGY REPORT [...] uterus cancer at age 55. LOCATION: [facility] BREAST COMPOSITION: Scattered areas fibroglandular density. FINDINGS: [...] M.D. on 03/04/2022 at 11:28 Normal [facility] PROF 14(COMP METB)on 022 Albumin [Mass/Vol] 3.6 g/dL Normal 3.4-5.0 [facility] Comment on above: Performed By: #### B EMBALMER ASSISTANT, TSH, CMP, LIPID, T7 #### [facility] [address] [place], [place] [address] Dr. Alvino Oliva Albumin/Globulin [Mass ratio] 0.9 {ratio} Normal [facility] Comment on above: Performed By: #### B EMBALMER ASSISTANT, TSH, CMP, LIPID, T7 #### [facility] [address] [place] [address] Dr. Alvino Oliva ALP [Catalytic activity/Vol] 78 U/L Normal 46-116 [facility] Comment on above: Performed By: #### B EMBALMER ASSISTANT, TSH, CMP, LIPID, T7 #### [facility] [address] [place] [address] Dr. Alvino Oliva ALT [Catalytic activity/Vol] 23 U/L Normal 14-59 [facility] Comment on above: Performed By: #### B EMBALMER ASSISTANT, TSH, CMP, LIPID, T7 #### [facility] [address] [place] [address] Dr. Alvino Oliva Anion gap [Moles/Vol] 12.0 mmol/L Normal [facility] Comment on above: Performed By: #### B EMBALMER ASSISTANT, TSH, CMP, LIPID, T7 #### [facility] [address] [place] [address] Dr. Alvino Oliva AST [Catalytic activity/Vol] 11 U/L Critically low 15-37 [facility] Comment on above: Performed By: #### B EMBALMER ASSISTANT, TSH, CMP, LIPID, T7 #### [facility] [address] [place] [address] Dr. Alvino Oliva Bilirubin [Mass/Vol] 0.3 mg/dL Normal 0.2-1.0 [facility] Comment on above: Performed By: #### B EMBALMER ASSISTANT, TSH, CMP, LIPID, T7 #### [facility] [address] [place] [address] Dr. Alvino Oliva Calcium [Mass/Vol] 9.2 mg/dL Normal 8.5-10.1 [facility] Comment on above: Performed By: #### B EMBALMER ASSISTANT, TSH, CMP, LIPID, T7 #### [facility] [address] [place] [address] Dr. Alvino Oliva Chloride [Moles/Vol] 106 mmol/L Normal 98-107 [facility] Comment on above: Performed By: #### B EMBALMER ASSISTANT, TSH, CMP, LIPID, T7 #### [facility] [address] [address] [address] Alvino Oliva CO2 [Moles/Vol] 25.2 mmol/L Normal 21.0-32.0 [facility] Comment on above: Performed By: #### B EMBALMER ASSISTANT, TSH, CMP, LIPID, T7 #### [facility] [address] [place] [address] Dr. Alvino Oliva Creatinine [Mass/Vol] 1.05 mg/dL Critically high 0.55-1.02 [facility] Comment on above: Performed By: #### B EMBALMER ASSISTANT, TSH, CMP, LIPID, T7 #### [facility] [address] [place] [address] Dr. Alvino Oliva EGFR-AF INDIAN >60 Normal >=60 [facility] Comment on above: Performed By: #### B EMBALMER ASSISTANT, TSH, CMP, LIPID, T7 #### [facility] [address] [place] [address] Dr. Alvino Oliva EGFR-NON AF INDIAN 55 mL/min/1.73m2 Critically low >=60 [facility] Comment on above: Performed By: #### B EMBALMER ASSISTANT, TSH, CMP, LIPID, T7 #### [facility] [address] [place] [address] Dr. Alvino Oliva Globulin (S) [Mass/Vol] 4.0 g/dL Normal [facility] Comment on above: Performed By: #### B EMBALMER ASSISTANT, TSH, CMP, LIPID, T7 #### [facility] [address] [place] [address] Dr. Alvino Oliva Glucose [Mass/Vol] 125 mg/dL Critically high 74-106 [facility] Comment on above: Performed By: #### B EMBALMER ASSISTANT, TSH, CMP, LIPID, T7 #### [facility] [address] [place] [address] Dr. Alvino Oliva Potassium [Moles/Vol] 4.2 mmol/L Normal 3.5-5.1 [facility] Comment on above: Performed By: #### B EMBALMER ASSISTANT, TSH, CMP, LIPID, T7 #### [facility] [address] [place] [address] Dr. Alvino Oliva Protein [Mass/Vol] 7.6 g/dL Normal 6.4-8.2 [facility] Comment on above: Performed By: #### B EMBALMER ASSISTANT, TSH, CMP, LIPID, T7 #### [facility] [address] [address] [address] Alvino Oliva Sodium [Moles/Vol] 139 mmol/L Normal 136-145 [facility] Comment on above: Performed By: #### B EMBALMER ASSISTANT, TSH, CMP, LIPID, T7 #### [facility] [address] [address] [address] Alvino Oliva Urea nitrogen [Mass/Vol] 20.0 mg/dL Critically high 7.0-18.0 [facility] Comment on above: Performed By: #### B EMBALMER ASSISTANT, TSH, CMP, LIPID, T7 #### [facility] [address] [place] [address] Dr. Alvino Oliva Urea nitrogen/Creatinine [Mass ratio] 19.0 mg/mg Normal [facility] Comment on above: Performed By: #### B EMBALMER ASSISTANT, TSH, CMP, LIPID, T7 #### [facility] [address] [address] [address] Alvino Oliva TSHon 03-04-2022 TSH 2.472 uIU/mL Normal 0.358-3.740 [facility] Comment on above: Performed By: #### B EMBALMER ASSISTANT, TSH, CMP, LIPID, T7 #### [facility] [address] [place] [address] Dr. Alvino Oliva Vital Signs Date Time Vital Sign Value Performing Clinician Gretchen teryr 04-04-2025 15:00-0400 Body height 166.5 cm Philippe Pardo MD Work Phone: [facility] 04-04-2025 15:00-0400 Body mass index (BMI) [Ratio] 44.7 kg/m2 Philippe Pardo MD Work Phone: [facility] 04-04-2025 15:00-0400 Body weight 124 kg Philippe Pardo MD Work Phone: [facility] 04-04-2025 15:00-0400 Diastolic blood pressure 77 mm[Hg] Philippe Pardo MD Work Phone: [facility] 04-04-2025 15:00-0400 Heart rate 71 /min Philippe Pardo MD Work Phone: [facility] 04-04-2025 15:00-0400 Respiratory rate 18 /min Philippe Pardo MD Work Phone: [facility] 04-04-2025 15:00-0400 SaO2% (BldA) [Mass fraction] 97 % Philippe Pardo MD Work Phone: [facility] 04-04-2025 15:00-0400 Systolic blood pressure 139 mm[Hg] Philippe Pardo MD Work Phone: [facility] 02-16-2025 13:37-0400 Body height 166.5 cm Philippe Pardo MD Work Phone: [facility] 02-16-2025 13:37-0400 Body mass index (BMI) [Ratio] 44.5 kg/m2 Philippe Pardo MD Work Phone: [facility] 02-16-2025 13:37-0400 Body weight 123.4 kg Philippe Pardo MD Work Phone: [facility] 02-16-2025 13:37-0400 Diastolic blood pressure 86 mm[Hg] Philippe Pardo MD Work Phone: [facility] 02-16-2025 13:37-0400 Heart rate 71 /min Philippe Pardo MD Work Phone: [facility] 02-16-2025 13:37-0400 Respiratory rate 18 /min Philippe Pardo MD Work Phone: [facility] 02-16-2025 13:37-0400 SaO2% (BldA) [Mass fraction] 98 % Philippe Padro MD Work Phone: [facility] 02-16-2025 13:37-0400 Systolic blood pressure 136 mm[Hg] Philippe Pardo MD Work Phone: [facility] 04-09-2023 13:59-0400 Blood Pressure Location [facility] 04-09-2023 13:59-0400 Diastolic blood pressure 90 mm[Hg] Jayden NILL [facility] [place] 04-09-2023 13:59-0400 Heart rate 80 /min Jayden NILL [facility] [place] 04-09-2023 13:59-0400 Respiratory rate 16 /min Jayden NILL [facility] [place] 04-09-2023 13:59-0400 Systolic blood pressure 138 mm[Hg] Jayden MOLINAL [facility] [place] Encounters Encounter Date Encounter Type Care Provider Facility Start: 04-04-2025 End: 04-04-2025 ambulatory Philippe Pardo MD Work Phone: [facility] Work Phone: Start: 04-04-2025 End: 04-04-2025 Patient encounter procedure Jessica Willett [facility] Work Phone: Start: 03-23-2025 End: 03-23-2025 ambulatory Philippe Pardo MD Work Phone: [facility] Work Phone: Start: 03-23-2025 End: 03-23-2025 Patient encounter procedure Julia Cardona [facility] Work Phone: Start: 02-22-2025 End: 02-22-2025 ambulatory Philippe Pardo MD Work Phone: [facility] Work Phone: Start: 02-22-2025 End: 02-22-2025 Patient encounter procedure Julia Cardona [facility] Work Phone: Start: 02-16-2025 End: 02-16-2025 ambulatory Philippe Pardo MD Work Phone: [facility] Work Phone: Start: 02-16-2025 End: 02-16-2025 Patient encounter procedure Jessica Willett MERCHANDISING PROFESS[employer] [facility] Work Phone: Start: 07-28-2024 End: 07-28-2024 ambulatory [facility] Start: 07-28-2024 Encounter for gynecological examination (general) (routine) without abnormal findings [facility] Start: 07-28-2024 End: 07-28-2024 [facility] Start: 07-28-2024 Encounter for gynecological examination (general) (routine) without abnormal findings ROBYN AVILESBIANKA [facility] Start: 05-02-2023 End: 05-03-2023 ambulatory Jayden R YENNI Facility:[facility] Start: 05-02-2023 End: 05-02-2023 Patient encounter procedure Jayden R NILL [facility] Start: 04-23-2023 End: 04-24-2023 ambulatory Jayden R NILL Facility:CD:[id number] Start: 04-09-2023 End: 04-10-2023 ambulatory [facility]ardo [facility] Start: 04-09-2023 End: 04-09-2023 Patient encounter procedure Jayden R NILL [facility] Start: 03-03-2023 ambulatory Jayden R NILL Facility :[facility] Start: 03-05-2022 Encounter for genera l adult medical examination without abnormal findings DR PHILIPPE PARDO [facility] Start: 03-04-2022 End: 03-05-[address] PHILIPPE PARDO Facility:[facility] Start: 03-04-2022 End: 03-05-2022 Encounter for general adult medical examination without abnormal findings DR PHILIPPE PARDO Facility:[facility] Procedures Date Procedure Procedure Detail Performing Clinician Start: 04-23-2023 Colonoscopy Jayden NI LL Excision of hemangioma Ervin ALEXANDER Plan of Treatment Date Care Activity Detail Author Start: 02-25-2025 Patient referral [facility] Work Phone: Patient referral [facility] Work Phone: Immunizations Immunization Date Immunization Notes Care Provider Fa cili 05-17-2022 SARS-CoV-2 (COVID-19 ) [id number] Jayden NILL [facility] [place] 07-06-2021 SARS-CoV-2 (COVID-19 ) mRNA BNT-162b2 vax Jayden NILL [facility] [place] 11-10-2020 SARS-CoV-2 (COVID-19 ) mRNA BNT-162b2 vax Jayden NILL [facility] [place] 10-20-2020 SARS-CoV-2 (COVID-19 ) mRNA BNT-162b2 vax Jayden NILL [facility] [place] Payers Date Payer Category Payer Unknown [id number] 1970 Unknown [id number] 2.16.84 [id number] 1970 Unknown [id number] 2.16.8 [id number] 1970 Unknown [id number] 2.16.8 [id number] 1970 Unknown [id number] 2.16.8 [id number] 1970 Unknown [id number] 2.16.8 [id number] 1970 Unknown [id number] 2.16.8 [id number] 1970 Unknown [id number] 2.16.8 [id number] 1959 Unknown [id number] Social History Date Type Detail Facility Start: 04-09-2023 Tobacco smoking status Heavy t obacco smoker (finding) [facility] Tobacco smoking status Never [facility] [place] Sex Assigned At Female [facility] Start: 02-16-2025 [facility] Sex Female (finding) [facility] Start: 1970 Sex Assigned At Female F [facility] Functional Status Date Assessment Result Facility 04-09-2023 Functional Status N/A [facility] Evaluation note 02-16-2025 Note Date & Type Note Facility 02-16-2025 Evaluation note Diagnosis Onset Date Resolution Elevated fasting glucose acute February 16, 2025 1 :03pm GERD (gastroesophageal reflux disease) acute February 16, 2025 1 :03pm Hypertension acute February 16 1:03pm Obesity, Class III, BMI 40-49.9 (morbid obesity) acute February 16, 2025 1 :03pm Psoriasis acute February 16, 2025 1:03pm Daytime sleepiness noneactive February 162024 1:03pm [facility] Work Phone: Evaluation note 02-16-2025 Note Date & Type Note Facility 02-16-2025 Evaluation note Diagnosis Onset Date Resolution Elevated fasting glucose acute February 16, 2025 1 :03pm GERD (gastroesophageal reflux disease) acute February 16, 2025 1 :03pm Hypertension acute February 16 1:03pm Obesity, Class III, BMI 40-49.9 (morbid obesity) acute February 16, 2025 1 :03pm Psoriasis acute February 16, 2025 1:03pm Daytime sleepiness noneactive February 162024 1:03pm Elevated fasting glucose acute April 04 2:57pm GERD (gastroesophageal reflux disease) acute April 04 2:57pm Hypertension acute April 04, 2025 2:57pm Obesity, Class III, BMI 40-49.9 (morbid obesity) acute April 04 2:57pm Psoriasis acute April 04, 2 025 2:57pm Daytime sleepiness noneactive April 04, 2025 2:57pm [facility] Work Phone: Clinical Note 04-09-2023 Note Date & Type Note Facility 04-09-2023 Note Chief Complaint consultation for screening colonoscopy [facility] Staff 52 year old female presents on [...] Mother. Immunizations Vaccine Date Status SARS-CoV-2 (COVID-19) [id number] 05/17/2022 Recorded SARS-CoV-2 (COVID-19) mRNA BNT-162b2 vax 07/06/2021 Recorded SARS-CoV-2 (COVID-19) mRNA BNT-162b2 vax 11/10/2020 Recorded SARS-CoV-2 (COVID-19) mRNA BNT-162b2 vax 10/20/2020 Recorded [facility] Comment on above: Result Comment: Elec tronically Signed By: YENNI SALINAS, Jayden Sheffield\Date and Time Signed: 04/09/23 14:22 EDT Evaluation + Plan note Note Date & Type Note Facility Evaluation + Plan note No data available for this section [facility] [place] Evaluation note Note Date & Type Note Facility Evaluation note No assessment information availa [facility] Work Phone: Hospital Discharge instructions Note Date & Type Note Facility Hospital Discharge instructions No data available for this section [facility] [place] Progress note Note Date & Type Note Facility Progress note No data available for this section [facility] [place] Reason for referral (narrative) Note Date & Type Note Facility Reason for referral (narrative) No reason for referral information available [facility] Work Phone: Summary Purpose Family History Relationship Condition Age at Onset Recorded Date/T farncine mother Atrial fibrillation Unknown Heart disease Unknown Hypertension Unknown father Heart disease Unknown Diabetes mellitus Unknown maternal grandfather Myocardial infarction Unknown Unknown maternal grandmother Myocardial infarction Unknown Advance Directives Advance Directive Response Recorded Date/ Time Advance Directives No December 23 12:53pm Chief Complaint and Reason for Visit Chief Complaint Admit Date [facility] (Q-Done) February 16, 2025 1: 03pm Reason for Visit Admit Date Elevated fasting glucose February 16, 2025 1:03pm GERD (gastroesophageal reflux disease) J damon 2024 1:03pm Hypertension February 16, 2025 1:03p m Obesity, Class III, BMI 40-49.9 (morbid obesity) February 16, 2025 1:03pm Psoriasis February 16, 2025 1:03p m Daytime sleepiness February 16, 2025 1:03p m Chief Complaint Admit Date [facility] (Q-Done) February 16, 2025 1: 03pm 1on 1 - after class March 23 3:06pm Chief Complaint Admit Date [facility] (Q-Done) February 16, 2025 1: 03pm 1on 1 - after class March 23 3:06pm 6-8 week April 04, 2025 2: 57pm Reason for Visit Admit Date Elevated fasting glucose February 16, 2025 1:03pm GERD (gastroesophageal reflux disease) J damon 2024 1:03pm Hypertension February 16, 2025 1:03p m Obesity, Class III, BMI 40-49.9 (morbid obesity) February 16, 2025 1:03pm Psoriasis February 16, 2025 1:03p m Daytime sleepiness February 16, 2025 1:03p m Elevated fasting glucose April 04 2:57pm [facility]ER[facility]es[facility] 2:57pm Hypertension April 04, 2025 2: 57pm Obesity, Class III, BMI 40-49.9 (morbid obesity) April 04, 2025 2:57pm Psoriasis April 04, 2025 2: 57pm Daytime sleepiness April 04, 2025 2: 57pm Additional Source Comments INFORMATION SOURCE (unrecogn ized section and content) DATE CREATED AUTHOR 04/05/2022 [facility] DATE CREATED AUTHOR AUTHOR'S ORGANIZ ATION 05/14/2023 [facility] DATE CREATED AUTHOR AUTHOR'S ORGANIZ ATION 07/31/2024 [facility] DATE CREATED AUTHOR AUTHOR'S ORGANIZ ATION 08/22/2024 [facility] Patient Care team informatio n (unrecognized section and content) Team Status: Active Member Role Status Dates Philippe Pardo MD Primary Care Provider Active Team Status: Inactive Member Role Status Dates Jessica Willett APRN Attending Provider Active Start: February 16, 2025 End: February 16, 2025 Philippe Pardo MD Primary Care Provider Active Start: February 16, 2025 End: February 16, 2025 Team Status: Inactive Member Role Status Dates Philippe Pardo MD Primary Care Provider Active Start: February 22, 2025 End: February 22, 2025 JUSTIN Doran Attending Provider Active Start: February 22, 2025 End: February 22, 2025 Team Status: Inactive Member Role Status Anibal Pardo MD Primary Care Provider Active Start: March 23, 2025 End: March 23, 2025 JUSTIN Doran Attending Provider Active Start: March 23, 2025 End: March 23, 2025 Team Status: Inactive Member Role Status Anibal Pardo MD Primary Care Provider Active Start: April 04, 2025 End: April 04, 2025 Jessica Willett APRN Attending Provider Active Start: April 04, 2025 End: April 04, 2025 Goals (unrecognized section and content) Goals may be documented in a n alternate section FOR RECORDS PERTAINING TO PATIENTS WHO ARE [...] BE BASED ON THE PRIMARY CLINICAL RECORDS. [employer] provides no warranty or guarantee of the accuracy or completeness of information in this document.
[2025-04-14 08:41] LABS: Hematocrit 39.6 % (36.0-48.0); Hemoglobin 13.3 g/dL (12.0-16.0); Immature Granulocytes Abs Auto 0.01 10^3/uL (0.00-0.03); Immature Granulocytes Pct Auto 0.2 % (0.0-0.5); Lymphocytes Absolute Auto 1.5 10^3/uL (1.2-3.8); Mean Corpuscular HGB Conc 33.6 g/dL (29.9-35.2); Mean Corpuscular Hemoglobin 32.2 pg (26.7-34.0); Mean Corpuscular Volume 95.9 fL (81.0-99.0); Platelet Count 176 10^3/uL (150-450); Red Blood Count 4.13 10^6/uL (4.20-5.40); White Blood Count 4.4 10^3/uL (4.0-11.0)
[2025-04-14 09:17] LABS: Alanine Aminotransferase 26 U/L (14-59); Albumin Globulin Ratio 0.8; Albumin Level 3.4 g/dL (3.4-5.0); Alkaline Phosphatase 69 U/L (46-116); Anion Gap 13.6; Aspartate Amino Transferase 11 U/L (15-37); Blood Urea Nitrogen 22.0 mg/dL (7.0-18.0); Calcium 9.3 mg/dL (8.5-10.1); Carbon Dioxide 26.1 mmol/L (21.0-32.0); Chloride 106 mmol/L (98-107); Cholesterol 206 mg/dL (<=200); Estimated GFR (African America >60 (>=60 mL/min/1.73m^2); Estimated GFR (Non-African Ame >60 (>=60 mL/min/1.73m^2); Free T3 2.78 pg/mL (2.18-3.98); Globulin 4.2 g/dL; Glucose 101 mg/dL (74-106); HDL Cholesterol 42 mg/dL (40-60); Potassium 4.7 mmol/L (3.5-5.1); Sodium 141 mmol/L (136-145); Thyroid Stimulating Hormone 2.086 uIU/mL (0.358-3.740); Total Protein 7.6 g/dL (6.4-8.2); Triglycerides 144 mg/dL (<=150); VLDL CHOLESTEROL 28.8 mg/dL
[2025-04-14 09:20] LABS: Iron 99.0 ug/dL (50.0-170.0)
== END 2025-04-14 08:00 | disposition home or self-care (01) ==
LOC: LAB 08:00
PROVIDERS: PCP Family Medicine; Visit Provider Family Medicine
DX: Z00.00 Encounter for general adult medical examination without abnormal findings (principal)
CPT/HCPCS: 36415; 80053; 80061; 83036; 83525; 83540; 84436; 84443; 84481; 85025

== ENCOUNTER 2025-04-22 13:08 | Outpatient (OUT) | payer BC, SELFPAY ==
--- OUTSIDE RECORDS SUMMARY | 2025-04-22 13:10 | XMS_ITS | Clinical Summary ---
Author Organization [facility] tem Address [id number] [address] [place] [address] Care Team Providers Care Protein Chemist Name Role Phone Unavailable Primary Care Provider Unavailabl e Allergies No known active allergies Medications semaglutide, weight loss, (WEGOVY) 2.4 mg/0.75 mL pen injector Inject 0.75 mL (2.4 mg total) under the skin every 7 days. Active carvediloL (COREG) 12.5 mg tablet Take 1 tablet (12.5 mg total) by mouth in the morning and 1 tablet (12.5 mg total) in the evening. Take with meals. Active irbesartan (AVAPRO) 150 mg tablet Take 1 tablet (150 mg total) by mouth nightly. Active desvenlafaxine (PRISTIQ) 50 mg 24 hr tablet Take 1 tablet (50 mg total) by mouth in the morning. Active cholecalciferol , vitamin D3, 5,000 units tablet Take 1 tablet (5,000 Units total) by mouth in the morning. Active Active Problems Problem Noted Date Diagnosed Date Benign neoplasm of sigmoid colon 07/28/2024 Depression 07/28/2024 HTN (hypertension) 07/28/2024 Hyperplastic rectal polyp 07/28/2024 BMI 40.0-44.9, adult 07/28/2024 Vitamin D deficiency 07/28/2024 Psoriasis 07/28/2024 Smoker 07/28/2024 Family History Medical History Relation Name Comments Atrial fibrillation Father Depression Father Hypertension Mother Relation Name Status Comments Father Alive Mother Alive Social History Tobacco Use Types Packs/Day Years Used Date Smoking Tobacco: Every Day Cigarettes 1 40.7 Started: 07/28/1984 Smokeless Tobacco: Never Tobacco Cessation:Ready to Q uit: Not Asked; Counseling Given: Not Answered Alcohol Use Standard Drinks/Week Comments Yes 0 (1 standard drink = 0.6 oz pur e alcohol) occasional PHQ-2 Answer Date Recorded Total Score 07/28/2024 Comments No Sex and Gender Information Value Date Recorded Sex Assigned at Not on file Legal Sex Female 3:44 PM EST Gender Identity Not on file Sexual Orientation Not on file Last Filed Vital Signs Vital Sign Reading Time Taken Comments Blood Pressure 130/90 07/28/2024 10:24 AM EST Pulse - - Temperature - - Respiratory Rate - - Oxygen Saturation - - Inhaled Oxygen Concentration - - Weight 122.5 kg (270 lb) 07/28/2024 10:24 AM EST Height 168.9 cm (5' 6.5 ) 07/28/2024 10:24 AM ES T Body Mass Index 42.93 07/28/2024 10:24 AM EST Plan of Treatment Health Maintenance Due Date Last Done Comments Tobacco Counseling 1970 Mammogram 2010 Influenza Vaccine 04/11/2025 06/25/2024, , 06/15/2021, Additional history exists Adult BMI Follow Up Plan 07/28/2025 07/28/2024 Adult BMI Screening 07/28/2025 07/28/2024 Depression Screening 07/28/2025 07/28/2024 Tobacco Screening 07/28/2025 07/28/2024 Pap Smear 07/28/2027 07/28/2024, 07/28/2024 DTaP,Tdap and Td Vaccines (2 - Td or Tdap) 07/07/2029 07/07/2019 Zoster (Shingles) Vaccine Completed 09/28/2021, 12/2020 COVID-19 Vaccine Completed 06/25/2024, 02/2022, 07/06/2021, Additional history exists Medical Devices Not on file Procedures Procedure Name Priority Date/Time Associated Diagnosis Comments HIGH RISK HPV W/TAE Routine 07/28/2024 5:05 AM EST Cervical smear, as part of routine gynecological examination from Last 3 Months or Most Recently Relevant to Health Maintenance Results * High risk HPV w/tae (07/28/2024 5:05 AM EST) Hpv specimen type ThinPrep 07/29/2024 5:06 AM EST [facility] Hpv 16 Negative Negative^N egative 07/30/2024 7:18 AM EST [facility] Hpv 18 Negative Negative^N egative 07/30/2024 7:18 AM EST [facility] Other high risk hpv Negative Negative^N egative 07/30/2024 7:18 AM EST [facility] Comment: HPV types 31,33,35,39,45,52,56,58,59,66 and 68 DNA were undetectable. THINP 07/28/2024 5:05 AM EST 07/28/2024 5:10 AM EST us Robyn Toledo [employer]ANUT GRADER-PITTING MACHINE OPERATOR LAB BLOOD ORDERABLES Fin al Result [facility] [address] [place] [place] [address] [facility] [address] [place] [address], [address] [place] [address] from Last 3 Months or Most Recently Relevant to Health Maintenance Insurance [employer]
--- OUTSIDE RECORDS SUMMARY | 2025-04-22 13:10 | XMS_ITS | Clinical Summary ---
Author Organization [facility] Healthcare Address [address] [place] [address] Care Team Providers Care Emergency Planner Name Role Phone Unavailable Primary Care Provider Unavailabl e Social History Tobacco Use Types Packs/Day Years Used Date Smoking Tobacco: Never Assessed Comments Unknown Sex and Gender Information Value Date Recorded Sex Assigned at Not on file Legal Sex Female 11:20 PM EDT Gender Identity Not on file Sexual Orientation Not on file Last Filed Vital Signs Vital Sign Reading Time Taken Comments Blood Pressure 128/75 06/11/2021 12:00 PM EDT Pulse - - Temperature - - Respiratory Rate - - Oxygen Saturation - - Inhaled Oxygen Concentration - - Weight 136 kg (300 lb) 06/11/2021 12:00 PM EDT Height 170.2 cm (5' 7 ) 06/11/2021 12:00 PM EDT Body Mass Index 46.99 06/11/2021 12:00 PM EDT Plan of Treatment Not on file
--- OUTSIDE RECORDS SUMMARY | 2025-04-22 13:10 | XMS_ITS | Encounter Summary ---
Author Organization [employer] [facility] tem Address [id number] [address] [place] [address] Care Team Providers Care Milker Machine Name Role Phone Unavailable Primary Care Provider Unavailabl e Encounter Details Date Type Department Care Team (Late st Contact Info) Description 08/02/2024 Orders Only [facility] Ob[facility]ne[facility] [address] [place] [address] Sharon Strickland CMA Postmenopausal Social History Tobacco Use Types Packs/Day Years Used Date Smoking Tobacco: Every Day Cigarettes 1 40.7 Started: 07/28/1984 Smokeless Tobacco: Never Alcohol Use Standard Drinks/Week Comments Yes 0 (1 standard drink = 0.6 oz pur e alcohol) occasional PHQ-2 Answer Date Recorded Total Score 10 07/28/2024 Comments No Sex and Gender Information Value Date Recorded Sex Assigned at Not on file Legal Sex Female 3:44 PM EST Gender Identity Not on file Sexual Orientation Not on file documented as of this encounter Plan of Treatment Not on file documented as of this encounter Procedures Procedure Name Priority Date/Time Associated Diagnosis Comments TESTOSTERONE, TOTAL AND FREE, S Routine 07/29/2024 Postmenopausal THYROID PROFILE INCLUDES TSH FT4 Routine 07/29/2024 Postmenopausal PROGESTERONE Routine 07/29/2024 Postmenopausal DHEA-SULFATE Routine 07/29/2024 Postmenopausal ESTRADIOL Routine 07/29/2024 Postmenopausal LUTEINIZING HORMONE Routine 07/29/2024 Postmenopausal FOLLICLE STIMULATING HORMONE Routine 07/29/2024 Postmenopausal documented in this encounter Results * Luteinizing hormone (07/29/2024) Luteinizing hormone 34.8 SUNQUEST 07/29/2024 Robyn M Stefmargyzer QUALITY CONTROL DIRECTOR-POULTRY VACCINATOR LAB BLOOD ORDERABLES Fin al Result SUNQUEST * Testosterone, Total and Free, S (07/29/2024) Testosterone free 39 SUNQUEST Blood 07/29/2024 Robyn M Stephaniezer QUALITY CONTROL DIRECTOR-POULTRY VACCINATOR LAB BLOOD ORDERABLES Fin al Result SUNQUEST * Estradiol (07/29/2024) Estradiol <5.0 SUNQUEST 07/29/2024 Robyn M Stephaniezer QUALITY CONTROL DIRECTOR-POULTRY VACCINATOR LAB BLOOD ORDERABLES Fin al Result SUNQUEST * Progesterone (07/29/2024) Progesterone 0.1 SUNQUEST 07/29/2024 Robyn M Stephaniezer QUALITY CONTROL DIRECTOR-POULTRY VACCINATOR LAB BLOOD ORDERABLES Fin al Result SUNQUEST * Follicle stimulating hormone (07/29/2024) Follicle stim hormone 67.3 SUNQUEST 07/29/2024 Robyn M Krotzer QUALITY CONTROL DIRECTOR-POULTRY VACCINATOR LAB BLOOD ORDERABLES Fin al Result SUNQUEST * DHEA-sulfate (07/29/2024) Dhea sulfate 62.0 SUNQUEST 07/29/2024 Robyn [place] QUALITY CONTROL DIRECTOR-POULTRY VACCINATOR LAB BLOOD ORDERABLES Fin al Result Performing Organization Address [facility] Co de Phone Number SUNQUEST * Thyroid profile includes TSH FT4 (07/29/2024) 07/29/2024 Robyn [place] QUALITY CONTROL DIRECTOR-POULTRY VACCINATOR LAB BLOOD ORDERABLES Fin al Result Performing Organization Address [facility] Phone Number SUNQUEST documented in this encounter Visit Diagnoses Diagnosis Postmenopausal Asymptomatic postmenopausal status (age-related) (natural) documented in this encounter Additional Health Concerns Assessment Noted Time PHQ-9 Depression Total Score: 10 024 10:24 AM EST A Body Mass Index follow-up plan has been documented for the patient 07/28/2024 11:05 AM EST documented as of this encounter
--- NOTE | 2025-04-22 13:11 | MM_ITS ---
Patient Name: DINORAH VERNON MR#: [id number] : 1970 Exam Date: 04/22/2025 Ordering Doctor: DR PHILIPPE AMOS . RADIOLOGY REPORT PROCEDURE: MM TOMOSYNTHESIS SCREENING BI COMPARISON: MM TOMOSYNTHESIS SCREENING BI, 03/17/2023. MG MAMM SCREEN 3D VAL[facility]E CAD, 03/04/2022. MG MAMM VALENTE SCRN W CAD DIG, 07/13/2015. INDICATIONS: screening Calculator Name NCI Breast Cancer Risk Assessment Tool 5 Year Breast Cancer Risk 1.00% Lifetime Breast Cancer Risk 7.50% Personal Breast Cancer No Personal Ovarian Cancer No Treatments None Family Cancers Aunt-maternal with uterus cancer at age ~55. LOCATION: [facility] BREAST COMPOSITION: There are scattered areas of fibroglandular density. FINDINGS: DIAGNOSTIC CATEGORY 1--NEGATIVE. RECOMMENDATIONS: ROUTINE MAMMOGRAM AND CLINICAL EVALUATION IN 12 MONTHS. Dictated by: Hong Black DO on 04/22/2025 at 15:04 Approved by: Hong Black DO on 04/22/2025 at 15:08
--- OUTSIDE RECORDS SUMMARY | 2025-04-22 13:16 | XMS_ITS | CCD ---
Author Organization [facility] Care Team Providers Care Director Of Maintenance Name Role Phone DR PHILIPPE PARDO Primary Care Unavailable EDVIN, DR PAEZ Consulting Unavailable EDVIN, DR PAEZ Attending Unavailable EDVIN, DR PAEZ Admitting Unavailable Zieber, DR Dee Consulting Unavailable Philippe Pardo Primary Care Physician [phone] Jayden ALEXANDER Attending Unavailable Philippe Pardo Referring Unavailable NILL, Jayden Valle Attending Unavailable Philippe Pardo Referring Unavailable NILL, Jayden Valle Attending Unavailable NILL, Jayden Valle Attending Unavailable KROTZER, ROBYN M Referring Unavailable Jessica Willett APRN Attending Provider Philippe Pardo MD Primary Care Provider [phone] Attending Provider Unavailable Allergies Allergy Classification Reported Allergen(s) Allergy Type Date of Onset Reaction(s) Facility (1 source) No Known Medication Allergies; Translations: [No Known Medication Allergies] Propensity to adverse reactions (disorder) [facility] Repository Medications Current Medications Medication [...] take 2 capsules by mouth once daily Oetjgtei-Htv-Llzp-Fa-Vit K-L ut (Centrum Minis Women 50 Plus) 4 mg iron-200 mcg-25 mcg tablet (4 sources) Start: 02-16-2025 take 1 tablet by mitchell th once Start: 02-16-2025 take 1 tablet by mitchell th once Yysessqf-Saa-Cjlu-Fa-Vit K-Lut (Centrum Minis Women 50 Plus) 4 [...] Reference Range Facility Cytologyon 12-18-2024 Cytology Normal [facility] Comment on above: Result Comment: [facility] [address] [place] [address] Gynecologic Cytology Consultation Patient Name:RACHEL VERNONB:1970 (Age: 54)Gender:FTaken:4Reported:08/16/2024Physician(s):Robyn [place], [facility] ([phone])Copy To: Rec. #:[id number]: #[id number] Final Cytologic Interpretation ThinPrep Pap Test (Cervical): Satisfactory for evaluation. NEGATIVE FOR INTRAEPITHELIAL LESION OR MALIGNANCY. [facility] [place]/08/16/2024 Interpretation performed at [facility], [address] [place] [address], License number: [id number]. Electronically Signed Out By MURRAY Santana(ASCP) Date of Last Menstrual Period: (None Given) Other Clinical Conditions: Menopausal Clinical History: postmenopausal Z01.419 Edging Catcher exam wo/abn findings Source of Specimen ThinPrep Pap Test (Cervical) Thin Prep Pap (MRI TECHNICIAN) Fee Code(s): G0145 The Pap test is a screening test with an inherent, but low, probability of error. The Pap test is primarily effective for the diagnosis and prevention of squamous cell carcinoma. Regular screening is critical for prevention. ThinPrep liquid-based slides, which meet the Business Management Analyst criteria for automated screening, have been screened by the ThinPrep Imaging System (as of 04/27/07) along with an additional manual rescreening by a larriman and, if indicated, by a pathologist. HIGH RISK HPV W/GENOon 07-28 HPV 31+33+35+39+45+51+52 +56+58+59+66+68 DNA RIKY+probe Ql (Cvx) HPV SPECIMEN TYPE ThinPrep HPV 16 Negative (qualifier value) HPV 18 Negative (qualifier value) OTHER HIGH RISK HPV Negative (qualifier value) HPV types 31,33,35,39,45,52,56, 58,59,66 and 68 DNA were undetectable. Normal [facility] Comment on above: Performed By: #### 7 1431-1 #### [facility] ([id number]) [address] [facility], [place] [address] [facility] ([id number]) [address] [facility], [address] [place] [address] General Surgery Office/Clini c Noteon 05-02-2023 General [...] Mother. Immunizations Vaccine Date Status SARS-CoV-2 (COVID-19) mRNAMUL.ORD![id number] 05/17/2022 Recorded SARS-CoV-2 (COVID-19) mRNA BNT-162b2 vax [...] due to history of tubular adenoma. Normal [facility] Pathology Noteon 04-28-2023 Pathology Note [id number]. 00CD:127 Normal [facility] Outside Colonoscopyon 2022 Outside Colonoscopy [id number] .00CD:127 Normal [facility] Consent for Procedure/Surger yon 04-10-2023 Consent for Procedure/Surgery [id number] .00CD:127 [facility] Formson 04-10-2023 Forms [id number] .00CD:127 [facility] Ambulatory Visit Summaryon 0 04-09-2023 Ambulatory Visit Summary LEIGHA VERNNO :1970 Visit Date:04/09/2023 Ambulatory Visit Instructions Your [...] neoplasm of colon Vitamin D deficiency Normal [facility] Provider Letteron 03-18-2023 Provider Letter March 18, 2023 LEIGHA VERNON [address] [place] [address] : 1970 Dear Leigha , We have been trying to reach you with no success. It is important that you return our call regarding your referral from Dr. Rock upon receiving this letter. Also, at the time of your call, please provide us with your current information. Thank you for your prompt attention to this matter. Sincerely, Dr. Jayden Alexander General Surgery Normal [facility] Physician Referralon 023 Physician Referral [id number] .00CD:127 Normal [facility] Physician Referralon 023 Physician Referral [id number] .00CD:127 Normal [facility] INSULINon 03-05-2022 Insulin 30.6 uIU/mL Critically high 2.6-24.9 [facility] Comment on above: Performed By: #### I NSULIN #### [facility] [address] [place] [address] Dr. Alvino Oliva BNPon 03-04-2022 Natriuretic peptide B (Bld) [Mass/Vol] 25.0 pg/mL Normal <=900.0 [facility] Comment on above: Performed By: #### B PSYCHOLOGY TECH, TSH, CMP, LIPID, T7 #### [facility] [address] [address] [address] Alvino Oliva CBC AUTO DIFFon 03-04-2022 BASO # 0.0 103/ul Normal 0.0-0.1 [facility] Comment on above: Performed By: #### C BC #### [facility] [address] [place] [address] Dr. Alvino Oliva Basophils/100 WBC (Bld) 0.3 % Normal 0.2-2.0 [facility] Comment on above: Performed By: #### C BC #### [facility] [address] [place] [address] Dr. Alvino Oliva EO # 0.1 103/ul Normal 0.0-0.7 [facility] Comment on above: Performed By: #### C BC #### [facility] [address] [place] [address] Dr. Alvino Oliva Eosinophils/100 WBC (Bld) 1.9 % Normal 0.9-7.0 [facility] Comment on above: Performed By: #### C BC #### [facility] [address] [place] [address] Dr. Alvino Oliva Erythrocyte distribution width (RBC) [Ratio] 12.4 % Normal 11.0-15.0 [facility] Comment on above: Performed By: #### C BC #### [facility] [address] [place] [address] Dr. Alvino Oliva Hematocrit (Bld) [Volume fraction] 42.1 % Normal 36.0-48.0 [facility] Comment on above: Performed By: #### C BC #### [facility] [address] [place] [address] Dr. Alvino Oliva Hemoglobin (Bld) [Mass/Vol] 14.5 g/dL Normal 12.0-16.0 [facility] Comment on above: Performed By: #### C BC #### [facility] [address] [place] [address] Dr. Alvino Oliva IG # 0.02 10e3/ul Normal 0.00-0.03 [facility] Comment on above: Performed By: #### C BC #### [facility] [address] [place] [address] Dr. Alvino Oliva IG % 0.3 % Normal 0.0-0.5 [facility] Comment on above: Performed By: #### C BC #### [facility] [address] [place] [address] Dr. Alvino Oliva LYMPH # 1.9 103/ul Normal 1.2-3.8 [facility] Comment on above: Performed By: #### C BC #### [facility] [address] [place] [address] Dr. Alvino Oliva Lymphocytes/100 WBC (Bld) 31.7 % Normal 20.5-60.0 [facility] Comment on above: Performed By: #### C BC #### [facility] [address] [place] [address] Dr. Alvino Oliva MANUAL DIFF REQ NO Normal [facility] Comment on above: Performed By: #### C BC #### [facility] [address] [place] [address] Dr. Alvino Oliva MCH (RBC) [Entitic mass] 31.7 pg Normal 26.7-34.0 [facility] Comment on above: Performed By: #### C BC #### [facility] [address] [place] [address] Dr. Alvino Oliva MCHC (RBC) [Mass/Vol] 34.4 g/dL Normal 29.9-35.2 [facility] Comment on above: Performed By: #### C BC #### [facility] [address] [place] [address] Dr. Alvino Oliva MCV (RBC) [Entitic vol] 92.1 fL Normal 81.0-99.0 [facility] Comment on above: Performed By: #### C BC #### [facility] [address] [place] [address] Dr. Alvino Oliva MONO # 0.4 103/ul Normal 0.3-0.8 [facility] Comment on above: Performed By: #### C BC #### [facility] [address] [place] [address] Dr. Alvino Oliva Monocytes/100 WBC (Bld) 6.0 % Normal 1.7-12.0 [facility] Comment on above: Performed By: #### C BC #### [facility] [address] [place] [address] Dr. Alvino Oliva NEUT # 3.5 103/ul Normal 1.4-6.5 [facility] Comment on above: Performed By: #### C BC #### [facility] [address] [place] [address] Dr. Alvino Oliva Neutrophils/100 WBC (Bld) 59.8 % Normal 43.0-75.0 [facility] Comment on above: Performed By: #### C BC #### [facility] [address] [place] [address] Dr. Alvino Oliva Platelet mean volume (Bld) [Entitic vol] 10.2 fL Normal 9.5-13.5 [facility] Comment on above: Performed By: #### C BC #### [facility] [address] [place] [address] Dr. Alvino Oliva PLT 246 103/ul Normal 150-450 [facility] Comment on above: Performed By: #### C BC #### [facility] [address] [place] [address] Dr. Alvino Oliva RBC 4.57 106/ul Normal 4.20-5.40 [facility] Comment on above: Performed By: #### C BC #### [facility] [address] [place] [address] Dr. Alvino Oliva WBC 5.8 103/ul Normal 4.0-11.0 [facility] Comment on above: Performed By: #### C BC #### [facility] [address] [place] [address] Dr. Alvino Oliva FREE THYROXINE INDEX T7on FTI 2.44 Normal 1.30-4.50 [facility] Comment on above: Performed By: #### B PSYCHOLOGY TECH, TSH, CMP, LIPID, T7 #### [facility] [address] [place] [address] Dr. Alvino Oliva T3U 33.0 % Normal 30.0-39.0 [facility] Comment on above: Performed By: #### B PSYCHOLOGY TECH, TSH, CMP, LIPID, T7 #### [facility] [address] [address] [address] Alvino Oliva T4 [Mass/Vol] 7.40 ug/dL Normal 4.80-13.90 [facility] Comment on above: Performed By: #### B PSYCHOLOGY TECH, TSH, CMP, LIPID, T7 #### [facility] [address] [place] [address] Dr. Alvino Oliva GLYCOHEMOGLOBIN A1Con 2021 ADA RECOMMENDATION SEE BELOW Normal [facility] Comment on above: Result Comment: ADA RECOMMENDED LIMIT 4.0 - 6.0 ADA THERAPEUTIC TARGET < 7.0 ACTION SUGGESTED > 7.0 Performed By: #### A 1C #### [facility] [address] [place] [address] Dr. Alvino Oliva Glucose [Mass/Vol] 114 mg/dL Normal [facility] Comment on above: Performed By: #### A 1C #### [facility] [address] [place] [address] Dr. Alvino Oliva HbA1c (Bld) [Mass fraction] 5.6 % Normal 4.5-6.2 [facility] Comment on above: Performed By: #### A 1C #### [facility] [address] [place] [address] Dr. Alvino Oliva IRONon 03-04-2022 Iron [Mass/Vol] 117.0 ug/dL Normal 50.0-170.0 [facility] Comment on above: Performed By: #### I LANDON #### [facility] [address] [place] [address] Dr. Alvino Oliva LIPID PROFILEon 03-04-2022 CHOL-HDL RATIO NORM SEE BELOW Normal [facility] Comment on above: Result Comment: 3.3 - 4.4 LOW RISK 4.4 - 7.1 AVERAGE RISK 7.1 - 11.0 MODERATE RISK >11.0 HIGH RISK Performed By: #### B PSYCHOLOGY TECH, TSH, CMP, LIPID, T7 #### [facility] [address] [place] [address] Dr. Alvino Oliva Cholesterol [Mass/Vol] 187 mg/dL Normal <=200 [facility] Comment on above: Performed By: #### B PSYCHOLOGY TECH, TSH, CMP, LIPID, T7 #### [facility] [address] [address] [address] Alvino Oliva Cholesterol in HDL [Mass/Vol] 34 mg/dL Critically low 40-60 [facility] Comment on above: Performed By: #### B PSYCHOLOGY TECH, TSH, CMP, LIPID, T7 #### [facility] [address] [address] [address] Alvino Oliva Cholesterol in LDL [Mass/Vol] 122.6 mg/dL Normal [facility] Comment on above: Performed By: #### B PSYCHOLOGY TECH, TSH, CMP, LIPID, T7 #### [facility] [address] [address] [address] Alvino Oliva Cholesterol.total/Ch olesterol in HDL [Mass ratio] 5.5 {ratio} Normal [facility] Comment on above: Performed By: #### B PSYCHOLOGY TECH, TSH, CMP, LIPID, T7 #### [facility] [address] [address] [address] Alvino Oliva HDL NORMAL > or = 60 mg/dl - LO W CARDIOVASCULAR RISK <40 mg/dl - HIGH CARDIOVASCULAR RISK Normal [facility] Comment on above: Performed By: #### B PSYCHOLOGY TECH, TSH, CMP, LIPID, T7 #### [facility] [address] [address] [address] Alvino Oliva LDL CALC NORMAL SEE BELOW Normal [facility] Comment on above: Result Comment: <100 mg/dl OPTIMAL 100 - 129 mg/dl NEAR OR ABOVE OPTIMAL 130 - 159 mg/dl BORDERLINE HIGH 160 - 189 mg/dl HIGH >190 mg/dl VERY HIGH Performed By: #### B PSYCHOLOGY TECH, TSH, CMP, LIPID, T7 #### [facility] [address] [address] [address] Alvino Oliva Triglyceride [Mass/Vol] 152 mg/dL Critically high <=150 [facility] Comment on above: Performed By: #### B PSYCHOLOGY TECH, TSH, CMP, LIPID, T7 #### [facility] [address] [place], [place] [address] Dr. Alvino Oliva VLDL CALC 30.4 mg/dL Normal [facility] Comment on above: Performed By: #### B PSYCHOLOGY TECH, TSH, CMP, LIPID, T7 #### [facility] [address] [place], [place] [address] Dr. Alvino Oliva MG MAMM SCREEN 3D VALENTE CADon 03-04-2022 MG MAMM SCREEN 3D VALENTE CAD Patient: LEIGHA VERNON Exam Date: 03/04/2022 : 1970 Gender:F Ordering : DR PHILIPPE PARDO . Admission #: [id number] Family : Order #: [id number] CLICK HERE TO VIEW EXAM RADIOLOGY REPORT [...] uterus cancer at age 55. LOCATION: [facility] BREAST COMPOSITION: Scattered areas fibroglandular density. [...] M.D. on 03/04/2022 at 11:28 Normal [facility] PROF 14(COMP METB)on 022 Albumin [Mass/Vol] 3.6 g/dL Normal 3.4-5.0 [facility] Comment on above: Performed By: #### B PSYCHOLOGY TECH, TSH, CMP, LIPID, T7 #### [facility] [address] [place], [place] [address] Dr. Alvino Oliva Albumin/Globulin [Mass ratio] 0.9 {ratio} Normal [facility] Comment on above: Performed By: #### B PSYCHOLOGY TECH, TSH, CMP, LIPID, T7 #### [facility] [address] [place] [address] Dr. Alvino Oliva ALP [Catalytic activity/Vol] 78 U/L Normal 46-116 [facility] Comment on above: Performed By: #### B PSYCHOLOGY TECH, TSH, CMP, LIPID, T7 #### [facility] [address] [place] [address] Dr. Alvino Oliva ALT [Catalytic activity/Vol] 23 U/L Normal 14-59 [facility] Comment on above: Performed By: #### B PSYCHOLOGY TECH, TSH, CMP, LIPID, T7 #### [facility] [address] [place] [address] Dr. Alvino Oliva Anion gap [Moles/Vol] 12.0 mmol/L Normal [facility] Comment on above: Performed By: #### B PSYCHOLOGY TECH, TSH, CMP, LIPID, T7 #### [facility] [address] [place] [address] Dr. Alvino Oliva AST [Catalytic activity/Vol] 11 U/L Critically low 15-37 [facility] Comment on above: Performed By: #### B PSYCHOLOGY TECH, TSH, CMP, LIPID, T7 #### [facility] [address] [place] [address] Dr. Alvino Oliva Bilirubin [Mass/Vol] 0.3 mg/dL Normal 0.2-1.0 [facility] Comment on above: Performed By: #### B PSYCHOLOGY TECH, TSH, CMP, LIPID, T7 #### [facility] [address] [place] [address] Dr. Alvino Oliva Calcium [Mass/Vol] 9.2 mg/dL Normal 8.5-10.1 [facility] Comment on above: Performed By: #### B PSYCHOLOGY TECH, TSH, CMP, LIPID, T7 #### [facility] [address] [place] [address] Dr. Alvino Oliva Chloride [Moles/Vol] 106 mmol/L Normal 98-107 [facility] Comment on above: Performed By: #### B PSYCHOLOGY TECH, TSH, CMP, LIPID, T7 #### [facility] [address] [address] [address] Alvino Oliva CO2 [Moles/Vol] 25.2 mmol/L Normal 21.0-32.0 [facility] Comment on above: Performed By: #### B PSYCHOLOGY TECH, TSH, CMP, LIPID, T7 #### [facility] [address] [place] [address] Dr. Alvino Oliva Creatinine [Mass/Vol] 1.05 mg/dL Critically high 0.55-1.02 [facility] Comment on above: Performed By: #### B PSYCHOLOGY TECH, TSH, CMP, LIPID, T7 #### [facility] [address] [place] [address] Dr. Alvino Oliva EGFR-AF [place]OOK ISLANDER >60 Normal >=60 [facility] Comment on above: Performed By: #### B PSYCHOLOGY TECH, TSH, CMP, LIPID, T7 #### [facility] [address] [place] [address] Dr. Alvino Oliva EGFR-NON AF [place]ER 55 mL/min/1.73m2 Critically low >=60 [facility] Comment on above: Performed By: #### B PSYCHOLOGY TECH, TSH, CMP, LIPID, T7 #### [facility] [address] [place] [address] Dr. Alvino Oliva Globulin (S) [Mass/Vol] 4.0 g/dL Normal [facility] Comment on above: Performed By: #### B PSYCHOLOGY TECH, TSH, CMP, LIPID, T7 #### [facility] [address] [place] [address] Dr. Alvino Oliva Glucose [Mass/Vol] 125 mg/dL Critically high 74-106 [facility] Comment on above: Performed By: #### B PSYCHOLOGY TECH, TSH, CMP, LIPID, T7 #### [facility] [address] [place] [address] Dr. Alvino Oliva Potassium [Moles/Vol] 4.2 mmol/L Normal 3.5-5.1 [facility] Comment on above: Performed By: #### B PSYCHOLOGY TECH, TSH, CMP, LIPID, T7 #### [facility] [address] [place] [address] Dr. Alvino Oliva Protein [Mass/Vol] 7.6 g/dL Normal 6.4-8.2 [facility] Comment on above: Performed By: #### B PSYCHOLOGY TECH, TSH, CMP, LIPID, T7 #### [facility] [address] [address] [address] Alvino Oliva Sodium [Moles/Vol] 139 mmol/L Normal 136-145 [facility] Comment on above: Performed By: #### B PSYCHOLOGY TECH, TSH, CMP, LIPID, T7 #### [facility] [address] [address] [address] Alvino Oliva Urea nitrogen [Mass/Vol] 20.0 mg/dL Critically high 7.0-18.0 [facility] Comment on above: Performed By: #### B PSYCHOLOGY TECH, TSH, CMP, LIPID, T7 #### [facility] [address] [place] [address] Dr. Alvino Oliva Urea nitrogen/Creatinine [Mass ratio] 19.0 mg/mg Normal [facility] Comment on above: Performed By: #### B PSYCHOLOGY TECH, TSH, CMP, LIPID, T7 #### [facility] [address] [address] [address] Alvino Oliva TSHon 03-04-2022 TSH 2.472 uIU/mL Normal 0.358-3.740 [facility] Comment on above: Performed By: #### B PSYCHOLOGY TECH, TSH, CMP, LIPID, T7 #### [facility] [address] [place] [address] Dr. Alvino Oliva Vital Signs Date Time Vital Sign Value Performing Clinician Gretchen terry 04-04-2025 15:00-0400 Body height 166.5 cm Philippe Pardo MD Work Phone: 04-04-2025 15:00-0400 Body mass index (BMI) [Ratio] 44.7 kg/m2 Philippe Pardo MD Work Phone: 04-04-2025 15:00-0400 Body weight 124 kg Philippe Pardo MD Work Phone: 04-04-2025 15:00-0400 Diastolic blood pressure 77 mm[Hg] Philippe Pardo MD Work Phone: 04-04-2025 15:00-0400 Heart rate 71 /min Philippe Pardo MD Work Phone: 04-04-2025 15:00-0400 Respiratory rate 18 /min Philippe Pardo MD Work Phone: 04-04-2025 15:00-0400 SaO2% (BldA) [Mass fraction] 97 % Philippe Pardo MD Work Phone: 04-04-2025 15:00-0400 Systolic blood pressure 139 mm[Hg] Philippe Pardo MD Work Phone: 02-16-2025 13:37-0400 Body height 166.5 cm Philippe Pardo MD Work Phone: 02-16-2025 13:37-0400 Body mass index (BMI) [Ratio] 44.5 kg/m2 Philippe Pardo MD Work Phone: 02-16-2025 13:37-0400 Body weight 123.4 kg Philippe Pardo MD Work Phone: 02-16-2025 13:37-0400 Diastolic blood pressure 86 mm[Hg] Philippe Pardo MD Work Phone: 02-16-2025 13:37-0400 Heart rate 71 /min Philippe Pardo MD Work Phone: 02-16-2025 13:37-0400 Respiratory rate 18 /min Philippe Pardo MD Work Phone: 02-16-2025 13:37-0400 SaO2% (BldA) [Mass fraction] 98 % Philippe Pardo MD Work Phone: 02-16-2025 13:37-0400 Systolic blood pressure 136 mm[Hg] Philippe Pardo MD Work Phone: 04-09-2023 13:59-0400 Blood Pressure Location [facility] 04-09-2023 13:59-0400 Diastolic blood pressure 90 mm[Hg] Jayden NILL [facility] 04-09-2023 13:59-0400 Heart rate 80 /min Jayden NILL [facility] 04-09-2023 13:59-0400 Respiratory rate 16 /min Jayden NILL [facility] 04-09-2023 13:59-0400 Systolic blood pressure 138 mm[Hg] Jayden MOLINAL [facility] [place] Encounters Encounter Date Encounter Type Care Provider Facility Start: 04-04-2025 End: 04-04-2025 ambulatory Philippe Pardo MD Work Phone: [facility] Work Phone: Start: 04-04-2025 End: 04-04-2025 Patient encounter procedure Jessica Willett [facility] Work Phone: Start: 03-23-2025 End: 03-23-2025 ambulatory Philippe Pardo MD Work Phone: [facility] Work Phone: Start: 03-23-2025 End: 03-23-2025 Patient encounter procedure Julia Cardona [facility] Work Phone: Start: 02-22-2025 End: 02-22-2025 ambulatory Philippe Pardo MD Work Phone: [facility] Work Phone: Start: 02-22-2025 End: 02-22-2025 Patient encounter procedure Julia Cardona [facility] Work Phone: Start: 02-16-2025 End: 02-16-2025 ambulatory Philippe Pardo MD Work Phone: [facility] Work Phone: Start: 02-16-2025 End: 02-16-2025 Patient encounter procedure Jessica Willett [facility] Work Phone: Start: 07-28-2024 End: 07-28-2024 ambulatory [facility] Start: 07-28-2024 Encounter for gynecological examination (general) (routine) without abnormal findings [facility] Start: 07-28-2024 End: [facility]: 07-28-[facility] Encounter for gynecological examination (general) (routine) without abnormal findings ROBYN AVILESBIANKA [facility] Start: 05-02-2023 End: 05-03-2023 ambulatory Jayden R YENNI Facility:[facility] Start: 05-02-2023 End: 05-02-2023 Patient encounter procedure Jayden R NILL General Surgery Nill/Said [place] Start: 04-23-2023 End: 04-24-2023 ambulatory Jayden R NILL Facility:[id number] Start: 04-09-2023 End: 04-10-2023 ambulatory [facility] Start: 04-09-2023 End: 04-09-2023 Patient encounter procedure Jayden R NILL General Surgery Nill/Said [place] Start: 03-03-2023 ambulatory Jayden R NILL Facility :[facility] Start: 03-05-2022 Encounter for genera l adult medical examination without abnormal findings DR PHILIPPE PARDO [facility] Start: 03-04-2022 End: 03-05-[address] PHILIPPE PARDO Facility:[facility] Start: 03-04-2022 End: 03-05-2022 Encounter for general adult medical examination without abnormal findings DR PHILIPPE PARDO Facility:[facility] Procedures Date Procedure Procedure Detail Performing Clinician Start: 04-23-2023 Colonoscopy Jayden NI LL Excision of hemangioma Ervin ALEXANDER Plan of Treatment Date Care Activity Detail Author Start: 02-25-2025 Patient referral [facility] Work Phone: Patient referral [facility] Work Phone: Immunizations Immunization Date Immunization Notes Care Provider Fa cili 05-17-2022 SARS-CoV-2 (COVID-19 ) [id number] Jayden NILL [facility] [place] 07-06-2021 SARS-CoV-2 (COVID-19 ) mRNA BNT-162b2 vax Jayden NILL [facility] [place] 11-10-2020 SARS-CoV-2 (COVID-19 ) mRNA BNT-162b2 vax Jayden NILL [facility] [place] 10-20-2020 SARS-CoV-2 (COVID-19 ) mRNA BNT-162b2 vax Jayden NILL [facility] [place] Payers Date Payer Category Payer Unknown [id number] 1970 Unknown [id number] 2.16.84 [id number] 1970 Unknown [id number] 2.16.8 [id number] 1970 Unknown [id number] 2.16.8 [id number] 1970 Unknown [id number] 2.16.8 [id number] 1970 Unknown [id number] 2.16.8 [id number] 1970 Unknown [id number] 2.16.8 [id number] 1970 Unknown [id number] 2.16.8 [id number] 1959 Unknown [id number] Social History Date Type Detail Facility Start: 04-09-2023 Tobacco smoking status Heavy t obacco smoker (finding) [facility] Tobacco smoking status Never Gener al [facility] [place] Sex Assigned At Female [facility] Start: 02-16-2025 [facility]) Sex Female (finding) [facility] Start: 1970 Sex Assigned At Female [facility] Functional Status Date Assessment Result Facility 04-09-2023 Functional Status N/A [facility] [place] Evaluation note 02-16-2025 Note Date & Type [...] 1:03pm Daytime sleepiness noneactive February 162024 1:03pm [facility] Work Phone: Evaluation note 02-16-2025 Note Date [...] Daytime sleepiness noneactive April 04, 2025 2:57pm [facility] Work Phone: Clinical Note 04-09-2023 Note Date & Type Note Facility 04-09-2023 Note Chief Complaint consultation for screening colonoscopy [facility] Staff 52 year old female presents on [...] Mother. Immunizations Vaccine Date Status SARS-CoV-2 (COVID-19) [id number] 05/17/2022 Recorded SARS-CoV-2 (COVID-19) mRNA BNT-162b2 vax 07/06/2021 Recorded SARS-CoV-2 (COVID-19) mRNA BNT-162b2 vax 11/10/2020 Recorded SARS-CoV-2 (COVID-19) mRNA BNT-162b2 vax 10/20/2020 Recorded [facility] Comment on above: Result Comment: Elec tronically Signed By: YENNI SALINAS, Jayden Sheffield\Date and Time Signed: 04/09/23 14:22 EDT Evaluation + Plan note Note Date & Type Note Facility Evaluation + Plan note No data available for this section [facility] [place] Evaluation note Note Date & Type Note Facility Evaluation note No assessment information availa [facility] Work Phone: Hospital Discharge instructions Note Date & Type Note Facility Hospital Discharge instructions No data available for this section [facility] [place] Progress note Note Date & Type Note Facility Progress note No data available for this section [facility] [place] Reason for referral (narrative) Note Date & Type Note Facility Reason for referral (narrative) No reason for referral information available [facility] Work Phone: Summary Purpose Family History Relationship Condition Age at Onset Recorded Date/T francine mother Atrial fibrillation Unknown Heart disease Unknown Hypertension Unknown father Heart disease Unknown Diabetes mellitus Unknown maternal grandfather Myocardial infarction Unknown Unknown maternal grandmother Myocardial infarction Unknown Advance Directives Advance Directive Response Recorded Date/ Time Advance Directives No December 23 12:53pm Chief Complaint and Reason for Visit Chief Complaint Admit Date Self-[place] (Q-Done) February 16, 2025 1: 03pm Reason for Visit Admit Date Elevated fasting glucose February 16, 2025 1:03pm GERD (gastroesophageal reflux disease) J damon 2024 1:03pm Hypertension February 16, 2025 1:03p m Obesity, Class III, BMI 40-49.9 (morbid obesity) February 16, 2025 1:03pm Psoriasis February 16, 2025 1:03p m Daytime sleepiness February 16, 2025 1:03p m Chief Complaint Admit Date Self-[place] (Q-Done) February 16, 2025 1: 03pm 1on 1 - after class March 23 3:06pm Chief Complaint Admit Date Self-[place] (Q-Done) February 16, 2025 1: 03pm 1on [...] 04 2:57pm GERD (gastroes[facility] reflux disease) [facility] 2024 2:57pm Hypertension April 04, 2025 2: 57pm Obesity, Class III, BMI 40-49.9 (morbid obesity) April 04, 2025 2:57pm Psoriasis April 04, 2025 2: 57pm Daytime sleepiness April 04, 2025 2: 57pm Additional Source Comments INFORMATION SOURCE (unrecogn ized section and content) DATE CREATED AUTHOR 04/05/2022 [facility] DATE CREATED AUTHOR AUTHOR'S ORGANIZ ATION 05/14/2023 [facility] DATE CREATED AUTHOR AUTHOR'S ORGANIZ ATION 07/31/2024 [facility] DATE CREATED AUTHOR AUTHOR'S ORGANIZ ATION 08/22/2024 [facility] Patient Care team informatio n (unrecognized [...] BE BASED ON THE PRIMARY CLINICAL RECORDS. [employer] provides no warranty or guarantee of the accuracy or completeness of information in this document.
== END 2025-04-22 13:09 | disposition home or self-care (01) ==
LOC: MAMMO 13:08
PROVIDERS: PCP Family Medicine; Visit Provider Family Medicine
DX: Z00.00 Encounter for general adult medical examination without abnormal findings (principal); Z12.31 Encounter for screening mammogram for malignant neoplasm of breast; Z80.8 Family history of malignant neoplasm of other organs or systems
CPT/HCPCS: 77063; 77067